=== PATIENT | female | born 1965 | race Caucasian/White ===

== ENCOUNTER 2021-04-24 19:16 | Emergency (ER) | payer BC, SELFPAY ==
[2021-04-24 19:26] VITALS: BP 175/106; PULSE 86; RESP 18; TEMP 36.8; O2SAT 97; BMI 37.2
[2021-04-24 20:15] LABS: Add Urine Microscopic? YES; Bilirubin Urine 1+ (Negative); Blood Urine 3+ (Negative); Glucose Urine UA Norm (Normal); Ketones Urine 1+ (Negative); Leukocyte Esterase Urine 1+ (Negative); Nitrate Urine Positive (Negative); Protein Urine 3+ (Negative); Urine Color Amber (Yellow); Urobilinogen Urine 1 mg/dL (Negative); pH Urine 5 (5-7)
[2021-04-24 20:17] LABS: Add Urine Culture? No; Bacteria Urine 4+ /hpf; RBC Urine TOO NUMEROUS TO CNT /hpf (0-2); Squamous Epithelial Cell Urine 40-55 /hpf (0-5); WBC Urine >100 /hpf (0-5)
--- NOTE | 2021-04-24 21:18 | W.ED.FEMALGU ---
HPI - Female Genitourinary General: Chief complaint: Urogenital-Female Stated complaint: blood in urain Time Seen by Provider: 04/24/21 21:08 History of Present Illness: Patient is a 55-year-old female who comes to the ED with UTI symptoms. Patient says yesterday she noticed a little bit of blood in her urine and she was having some pain when urinating. Today she continued to have some visible blood in urine. She denies any fever, chills, abdominal pain, nausea/vomiting. She does endorse some mild left flank/lower back pain. She describes the left flank/lower back pain as mild. She has not had any recent antibiotic use and has no allergies to any antibiotics. Associated symptoms: Deny abdominal pain, headache(s) or nausea Review of Systems Const: Denies: fever(s), chills or fatigue Eyes: Denies: change in vision or eye discomfort ENMT: Denies: throat pain, odynophagia, nasal discharge or nasal congestion Card: Denies: chest pain, palpitations, edema, swelling of feet/ankles, dyspnea on exertion or orthopnea Resp: Denies: dyspnea, productive cough or non-productive cough GI: Denies: abdominal pain, nausea, vomiting, diarrhea, constipation or hematochezia : Reports: flank pain (left), dysuria and hematuria Musc: Denies: neck pain, back pain or extremity swelling Skin/Breast: Denies: rash or new lesions Neuro: Denies: headache(s) PFS ED PFSH: Medical History No pertinent family history No pertinent past medical history Physical Exam Const: COMMON NORMALS: no acute distress and patient oriented x3 GENERAL APPEARANCE: cooperative and comfortable HENMT: COMMON NORMALS: normocephalic HEAD & SCALP: normocephalic MOUTH: Normal oral and palatal mucosa present THROAT: posterior oropharynx normal and uvula midline Neck/C-Spine: COMMON NORMALS: supple GENERAL: Yes normal visual inspection Resp: COMMON NORMALS: normal respiratory effort, No retractions, No use of accessory muscles and clear to auscultation bilaterally AUSCULTATION: clear to auscultation bilaterally Cardio: COMMON NORMALS: regular rate, regular rhythm, S1 normal heart sound present, S2 normal heart sound present, No gallops present (Cardio), No clicks present (Cardio), No murmurs present (Cardio) and Peripheral pulses 2+ throughout RATE: regular rate RHYTHM: regular rhythm HEART SOUNDS: S1 normal heart sound present and S2 normal heart sound present PERIPHERAL PULSES: Peripheral pulses 2+ throughout GI: COMMON NORMALS: Normal to inspection, nondistended, normoactive bowel sounds present, Soft to palpation, non-tender and no masses PALPATION: Yes Soft to palpation : BLADDER/KIDNEY EXAM: Yes CVA tenderness on the left Back/Pelvis: GENERAL BACK: Yes CVA tenderness Extremity: COMMON NORMALS: normal to inspection Neuro: COMMON NORMALS: patient oriented x3 GAIT: Yes Normal gait present Skin: GENERAL SKIN EXAM: dry skin Course Vital Signs: Vital signs: Vital Signs Temperature 98.0 F 04/24/21 21:49 Pulse Rate 77 04/24/21 21:49 Respiratory Rate 18 04/24/21 21:49 Blood Pressure 166/99 04/24/21 21:49 Pulse Oximetry 96 04/24/21 21:49 [facility] - Female Medical Decision Making Patient is a 55-year-old female comes to the ED with UTI symptoms. She has been having visible blood in urine and dysuria for the past 2 days. Denies fever, chills, nausea/vomiting. Vitals stable. Patient appears in no acute distress or pain. She has some mild left CVA tenderness. Rest of exam is benign. UA showed a lot of blood, nitrates, white blood cells and bacteria. Patient diagnosed with UTI and was discharged home with a prescription for ciprofloxacin. She was told to follow-up with her PCP in 5 to 7 days for reevaluation. Return to ED precautions given. Patient understood and agreed with plan. Lab Data Laboratory Results Urine Color Jessika (Yellow) 04/24/21 19:30 Urine Appearance Sl cloudy (CLEAR) A 04/24/21 19:30 Urine pH 5 (5-7) 04/24/21 19:30 Ur Specific [place] 1.030 (1.005-1.030) 04/24/21 19:30 Urine Protein 3+ (Negative) H 04/24/21 19:30 Urine Glucose (UA) Norm (Normal) 04/24/21 19:30 Urine Ketones 1+ (Negative) H 04/24/21 19:30 Urine Blood 3+ (Negative) H 04/24/21 19:30 Urine Nitrate Positive (Negative) H 04/24/21 19:30 Urine Bilirubin 1+ (Negative) H 04/24/21 19:30 Urine Urobilinogen 1 mg/dL (Negative) H 04/24/21 19:30 Ur Leukocyte Esterase 1+ (Negative) H 04/24/21 19:30 Urine RBC Too numerous to cnt /hpf (0-2) H 04/24/21 19:30 Urine WBC >100 /hpf (0-5) H 04/24/21 19:30 Ur Squamous Epith Cells 40-55 /hpf (0-5) H 04/24/21 19:30 Amorphous Sediment Not Reportable 04/24/21 19:30 Urine Bacteria 4+ /hpf (NONE) H 04/24/21 19:30 Discharge Plan Discharge Patient Disposition: Home Clinical Impression: Urinary tract infection Qualifiers: Urinary tract infection type: acute cystitis Hematuria presence: with hematuria Qualified Code(s): N30.01 - Acute cystitis with hematuria Condition: Stable Prescriptions: New ciprofloxacin HCl 500 mg tablet 500 mg PO BID 7 Days Qty: 14 0RF Discharge Orders: Discharge ED (Routine); Ordered 04/24/21 Ordered By: Vel Reyes Discharge Diet: Regular Discharge Activity: Resume usual activity Patient Instructions: Urinary Tract Infection in Women (DC) Activity Restrictions/Additional Instructions: Follow-up with medical provider as directed in the next 5 to 7 days reevaluation.Take medications as prescribed. Return to the ER or your medical provider if condition worsens. Please read and understand discharge instructions. Thank you for choosing [facility] for your healthcare needs today. Please realize this is an emergency room and that we are providing you with a medical screening exam and this may not be complete and all inclusive of all the testing and or work up that you may need to determine your ailment or severity of your illness. It is very important that you follow up as instructed or that you return to the Emergency Department should you have concerns or if your condition changes or worsens in any way. Stand Alone Forms: Work/School Release Coding Level of Care Code ED Gm for Juana Fwivonne Exam Comprehensive
[2021-04-24] MEDS: ciprofloxacin 500 mg Tablet PO (21:47)
[2021-04-24 21:49] VITALS: BP 166/99; PULSE 77; RESP 18; TEMP 36.7; O2SAT 96
== END 2021-04-24 21:56 | disposition home or self-care (01) ==
PROVIDERS: Emergency Provider Physician Assistant
DX: N30.01 Acute cystitis with hematuria (principal)
CPT/HCPCS: 81001; 99283

== ENCOUNTER 2022-02-20 01:00 | Outpatient (CLI) | payer BC, SELFPAY ==
[2022-02-20 13:26] LABS: Troponin T (5th) Once 14 ng/L (0-10)
== END 2022-02-20 23:00 | disposition home or self-care (01) ==
LOC: LAB 04-09 14:34
PROVIDERS: PCP Family Medicine; Visit Provider Family Medicine
DX: Z01.89 Encounter for other specified special examinations (principal)
CPT/HCPCS: 84484

== ENCOUNTER 2022-02-20 15:11 | Emergency (ER) | payer BC, SELFPAY ==
--- NOTE | 2022-02-20 15:21 | ECG_ITS ---
[facility] Test Date: 2022-02-20 Pat Name: Radha Oneill Department: Room: Gender: Female Manager Of International: : 1965 Requested By: Andrew Christianson Order Number: [id number] Caren MD: Laura Garcia M.D. Measurements Intervals [place] Rate: 64 P: 62 VA: 179 QRS: -46 QRSD: 132 T: 83 QT: 413 QTc: 428 Interpretive Statements SINUS RHYTHM LEFT AXIS DEVIATION [QRS AXIS < -30] LEFT BUNDLE BRANCH BLOCK [120+ ms QRS DURATION, 80+ ms Q/S IN V1/V2, 85+ ms R IN I/aVL/V5/V6] No previous ECG available for comparison Electronically Signed On 02-20-2022 17:52:27 MANAGER OF MAINTENANCE by Laura Garcia M.D. [email or web address]/store/[id number] f
[2022-02-20 15:46] VITALS: BP 187/98; PULSE 65; RESP 16; TEMP 36.8; O2SAT 95
[2022-02-20 15:54] LABS: Basophils # 0.1 10^3/uL (0.0-0.1); Basophils % 0.5 %; Eosinophils # 0.2 10^3/uL (0.0-0.8); Eosinophils % 1.7 %; Hemoglobin 13.6 g/dL (11.5-15.3); Lymphocytes # 1.3 10^3/uL (0.8-4.8); Lymphocytes % 12.3 %; Mean Corpuscular HGB Conc 31.6 g/dL (30.0-36.0); Mean Corpuscular Hemoglobin 27.8 pg (28.0-34.0); Mean Corpuscular Volume 87.9 fl (81-99); Monocytes # 0.7 10^3/uL (0.2-0.9); Monocytes % 6.5 %; Neutrophils # 8.06 10^3/uL (1.8-7.7); Neutrophils % 78.8 %; Nucleated Red Blood Cells % 0 %; Platelet Count 296 10^3/cmm (130-400); Red Blood Count 4.89 10^6/uL (4.1-5.3); Red Cell Distribution Width 13.2 % (12.1-15.1); White Blood Count 10.2 10^3/uL (4.0-10.0)
[2022-02-20 16:23] LABS: Troponin(5th) Baseline 17 ng/L (0-10)
[2022-02-20 16:30] LABS: Alanine Aminotransferase 18 U/L (0-33); Albumin Level 3.9 g/dL (3.5-5.2); Alkaline Phosphatase 81 U/L (35-105); Anion Gap 13.2 (5-19); Aspartate Amino Transferase 21 U/L (0-32); Blood Urea Nitrogen 16 mg/dL (6-20); Calcium 9.7 mg/dL (8.5-10.5); Carbon Dioxide 31 mmol/L (22-29); Chloride 100 mmol/L (98-107); Globulin 3.7 g/dL (1.3-4.6); Glomerular Filtration Rate 65.2 mL/min (90-130); Glucose 88 mg/dL (65-115); NT Pro B Type Natriuretic Pept 1277 pg/mL (0-125); Osmolality Calculated 291 mOsm/kg (285-295); Potassium 4.2 mmol/L (3.5-5.1); Sodium 140 mmol/L (136-145); Total Bilirubin 0.2 mg/dL (0.15-1.2); Total Protein 7.6 g/dL (6.6-8.7)
--- NOTE | 2022-02-20 17:12 | XRR_ITS ---
PROCEDURE INFORMATION: Exam: XR Chest Exam date and time: 02/20/2022 6:40 PM Age: 56 years old Clinical indication: Pain; Left-sided; Additional info: Chest pain TECHNIQUE: Imaging protocol: Radiologic exam of the chest. Views: 1 view. COMPARISON: No relevant prior studies available. FINDINGS: Lungs: Unremarkable. No consolidation. Pleural spaces: Unremarkable. No pleural effusion. No pneumothorax. Heart/Mediastinum: Cardiomegaly. Bones/joints: Unremarkable. XR/XR chest 1V portable [id number] IMPRESSION: Cardiomegaly, negative for infiltrate
--- NOTE | 2022-02-20 17:21 | ECG_ITS ---
[facility] Test Date: 2022-02-20 Pat Name: Radha Oneill Department: Room: Gender: Female Handle Sewer: : 1965 Requested By: Andrew Christianson Order Number: [id number] Caren MD: Laura Garcia M.D. Measurements Intervals [place] Rate: 64 P: 67 NE: 179 QRS: -45 QRSD: 138 T: 76 QT: 433 QTc: 449 Interpretive Statements SINUS RHYTHM WITH OCCASIONAL VENTRICULAR PREMATURE COMPLEXES LEFT AXIS DEVIATION [QRS AXIS < -30] LEFT BUNDLE BRANCH BLOCK [120+ ms QRS DURATION, 80+ ms Q/S IN V1/V2, 85+ ms R IN I/aVL/V5/V6] Compared to ECG 02/20/2022 15:51:09 Ventricular premature complex(es) now present Electronically Signed On 02-21-2022 0:14:26 SHADE MAKER by Laura Garcia M.D. [email or web address]/store/[id number]
--- NOTE | 2022-02-20 17:26 | W.ED.CHESTPA ---
Documented by User: Robles Finley DO 02/23/22 07:12 HPI - Chest Pain General: Chief Complaint: Chest Pain Stated Complaint: abnormal labs Time Seen by Provider: 02/20/22 17:12 Source: patient Mode of arrival: ambulatory Limitations: no limitations History of Present Illness: 56-year-old female presents emergency room history of hypertension. She complaining some chest discomfort as well she has had this intermittently. She has had over the last couple of days. She has a known history of hypertension no known history of coronary artery disease. Patient does not smoke. No previous stroke she denies being diabetic. She was started on metoprolol earlier today and then directed her because the elevated blood pressure. Patient reports that she has previously had a heart attack when asked for details she sounds if she was given a dose of narcotics during the course of a vaginal delivery and then she does not recall what happened she said she woke up 3 days later she says she was told she had a heart attack but she never had an angiogram or stenting or any kind of further evaluation. MD complaint: chest pain Onset (ago): hour(s) Timing of current episode: episodic Prior episodes: Yes Onset: during rest Pain location: substernal Pain radiation: none Severity: mild Quality: tightness, aching and heaviness Relieving factors: nothing Exacerbating factors: nothing Associated symptoms: Deny abdominal pain, diaphoresis, dyspnea, fever(s), leg edema, nausea, palpitations, sense of impending doom, syncope or vomiting Treatment prior to arrival: none Review of Systems Const: Denies: fever(s), chills, fatigue, malaise or diaphoresis ENMT: Denies: throat pain, ear or mastoid pain, nasal discharge or nasal congestion Card: Reports: chest pain, edema and swelling of feet/ankles; Denies: palpitations, irregular heart rhythm or syncope Resp: Denies: dyspnea, productive cough, non-productive cough or wheezing GI: Denies: abdominal pain, nausea or vomiting : Denies: flank pain, difficulty voiding, dysuria, urinary frequency or urinary urgency Skin/Breast: Denies: rash or pruritus PFSH ED PFSH: Medical History No pertinent family history No pertinent past medical history Social History (Updated 02/23/22 @ 07:10 by Robles Finley DO) Smoking and tobacco status: never smoked Alcohol intake: never Physical Exam Const: COMMON NORMALS: no acute distress GENERAL APPEARANCE: cooperative and comfortable NUTRITIONAL APPEARANCE: obese ORIENTATION/CONSCIOUSNESS: Yes awake, Yes oriented to person, Yes oriented to place and Yes oriented to time HENMT: COMMON NORMALS: normocephalic, atraumatic and hearing grossly normal bilaterally HEAD & SCALP: normocephalic and atraumatic Resp: COMMON NORMALS: normal respiratory effort, No retractions, No use of accessory muscles and clear to auscultation bilaterally AUSCULTATION: clear to auscultation bilaterally Cardio: COMMON NORMALS: regular rate, regular rhythm and No murmurs present (Cardio) RATE: regular rate RHYTHM: regular rhythm GI: COMMON NORMALS: Soft to palpation and No hepatosplenomegaly present AUSCULTATION: Yes normoactive bowel sounds PALPATION: Yes Soft to palpation, No Tenderness to palpation present (GI), No Guarding due to palpation present (GI) and Yes No hepatosplenomegaly present Extremity: COMMON NORMALS: normal to inspection, capillary refill normal, no clubbing, cyanosis or edema, no calf tenderness and no pedal edema Neuro: SENSORIUM/ORIENTATION: Yes oriented to person, Yes oriented to place and Yes oriented to time Skin: COMMON NORMALS: no rashes or lesions noted GENERAL SKIN EXAM: no rashes or lesions noted Course Vital Signs: Vital signs: Vital Signs Temperature 98.2 F 02/20/22 15:46 Pulse Rate 65 02/20/22 18:24 Respiratory Rate 15 02/20/22 17:54 Blood Pressure 142/82 02/20/22 18:42 Pulse Oximetry 96 02/20/22 18:42 Oxygen Delivery Me thod 02/20/22 18:42 MDM - Chest Pain Medical Decision Making Initial EKG is negative. Patient reported that she previously had an CA related to narcotic being given to her during . But she has no known history of previous angiography or stenting she has not had bypass. Surgery been started on metoprolol we will add isosorbide mononitrate she is not having any significant pain when she first presented initial EKG does not show any acute changes she had a troponin at her doctor's office at 1:00 and a second troponin here which conveniently is almost exactly 2 hours later which is also normal. Because of volumes in the emergency room by the time I seen the patient our 2-hour troponin was about to be drawn. We will wait on that result discussed with Dr. Arndt he will assume care at change of shift and discharge home if appropriate. Patient presents here with chest pain with hypertension her troponins here are normal she had a troponin drawn earlier today that was normal as well her blood pressure is now 142/82 she is stable for discharge she is started on new meds she is to follow-up with PCP and return if worsening. Medical Records I reviewed the patient's medical records. Lab Data I reviewed the patient's lab results. 02/20/22 15:40 02/20/22 15:40 Radiology Impressions Chest X-Ray 02/20/22 17:12 IMPRESSION: Cardiomegaly, negative for infiltrate Laboratory Results WBC 10.2 10^3/uL (4.0-10.0) H 02/20/22 15:40 RBC 4.89 10^6/uL (4.1-5.3) 02/20/22 15:40 Hgb 13.6 g/dL (11.5-15.3) 02/20/22 15:40 Hct 43.0 % (37.0-47.0) 02/20/22 15:40 MCV 87.9 fl (81-99) 02/20/22 15:40 MCH 27.8 pg (28.0-34.0) L 02/20/22 15:40 MCHC 31.6 g/dL (30.0-36.0) 02/20/22 15:40 RDW 13.2 % (12.1-15.1) 02/20/22 15:40 Plt Count 296 10^3/cmm (130-400) 02/20/22 15:40 MPV 10.0 fL (7.4-10.4) 02/20/22 15:40 Neut % (Auto) 78.8 % 02/20/22 15:40 Lymph % (Auto) 12.3 % 02/20/22 15:40 [place] % (Auto) 6.5 % 02/20/22 15:40 Eos % (Auto) 1.7 % 02/20/22 15:40 Baso % (Auto) 0.5 % 02/20/22 15:40 Neut # (Auto) 8.06 10^3/uL (1.8-7.7) H 02/20/22 15:40 Lymph # (Auto) 1.3 10^3/uL (0.8-4.8) 02/20/22 15:40 [place] # (Auto) 0.7 10^3/uL (0.2-0.9) 02/20/22 15:40 Eos # (Auto) 0.2 10^3/uL (0.0-0.8) 02/20/22 15:40 Baso # (Auto) 0.1 10^3/uL (0.0-0.1) 02/20/22 15:40 Nucleated RBC % (auto) 0 % 02/20/22 15:40 Nucleated RBCs # 0.0 /100WBC 02/20/22 15:40 Sodium 140 mmol/L (136-145) 02/20/22 15:40 Potassium 4.2 mmol/L (3.5-5.1) 02/20/22 15:40 Chloride 100 mmol/L (98-107) 02/20/22 15:40 Carbon Dioxide 31 mmol/L (22-29) H 02/20/22 15:40 Anion Gap 13.2 (5-19) 02/20/22 15:40 BUN 16 mg/dL (6-20) 02/20/22 15:40 Creatinine 0.9 mg/dL (0.5-0.9) 02/20/22 15:40 GFR Calculation 65.2 mL/min (90-130) L 02/20/22 15:40 Glucose 88 mg/dL (65-115) 02/20/22 15:40 Calculated Osmolality 291 mOsm/kg (285-295) 02/20/22 15:40 Calcium 9.7 mg/dL (8.5-10.5) 02/20/22 15:40 Total Bilirubin 0.2 mg/dL (0.15-1.2) 02/20/22 15:40 AST 21 U/L (0-32) 02/20/22 15:40 ALT 18 U/L (0-33) 02/20/22 15:40 Alkaline Phosphatase 81 U/L (35-105) 02/20/22 15:40 Troponin T Baseline 17 ng/L (0-10) H 11/28/22 15:40 Troponin T 120 Minute 18.77 ng/L (0-10) H 02/20/22 17:36 Delta Troponin T 1.77 ABS# (0-10) 02/20/22 17:36 NT-Pro-B Natriuret Pep 1277 pg/mL (0-125) H 02/20/22 15:40 Total Protein 7.6 g/dL (6.6-8.7) 02/20/22 15:40 Albumin 3.9 g/dL (3.5-5.2) 02/20/22 15:40 Globulin 3.7 g/dL (1.3-4.6) 02/20/22 15:40 Hep Bs Antigen Non-reactive (Nonreactive) 02/20/22 15:40 Hepatitis C Antibody Non-reactive (Nonreactive) 02/20/22 15:40 HIV 1&2 Ab & HIV 1 Ag Non-reactive (Non-Reactiv) 02/20/22 15:40 HIV 1&2 Antibody Non-reactive (Non-Reactiv) 02/20/22 15:40 Discharge Plan Discharge Patient Disposition: Home Clinical Impression: Atypical chest pain Condition: Stable Prescriptions: New isosorbide mononitrate 30 mg tablet extended release 24 hr 30 mg PO DAILY Qty: 30 0RF aspirin 81 mg tablet,delayed release (DR/EC) 81 mg PO DAILY Qty: 30 0RF No Action trazodone 100 mg tablet 100 mg PO DAILY baclofen 10 mg tablet 10 mg PO BID PRN (Reason: Muscle Spasm) metoprolol tartrate 50 mg tablet 50 - 100 mg PO BID albuterol sulfate 90 mcg/actuation HFA aerosol inhaler 2 puff INHALATION Q4H PRN (Reason: Shortness Of Breath) Advil 200 mg Tablet 800 mg PO Q6H PRN (Reason: Pain) Discharge Orders: Discharge ED (Routine); Ordered 02/20/22 Ordered By: Robles Finley Referrals: Luisa Avina MD [Primary Care Provider] - Discharge Diet: Usual diet Discharge Activity: Limit activity as instructed Activity Restrictions/Additional Instructions: You were seen for an episode of chest pain. Your blood pressure was also significantly elevated. Management make arrangements for you to have an outpatient stress test. Coding Level of Care Code ED Light Oil Operator for Chg Fwd Documented by User: Antonio Arndt MD 02/20/22 18:43 HPI - Chest Pain General: Chief Complaint: Chest Pain Stated Complaint: abnormal labs Time Seen by Provider: 02/20/22 17:12 History of Present Illness: . PFSH ED PFSH: Medical History No pertinent family history No pertinent past medical history Social History (Updated 02/23/22 @ 07:10 by Robles Finley DO) Smoking and tobacco status: never smoked Alcohol intake: never Course Vital Signs: Vital signs: Vital Signs Temperature 98.2 F 02/20/22 15:46 Pulse Rate 65 02/20/22 18:24 Respiratory Rate 15 02/20/22 17:54 Blood Pressure 142/82 02/20/22 18:42 Pulse Oximetry 96 02/20/22 18:42 Oxygen Delivery Me thod 02/20/22 18:42 MDM - Chest Pain Medical Decision Making Patient presents here with chest pain with hypertension her troponins here are normal she had a troponin drawn earlier today that was normal as well her blood pressure is now 142/82 she is stable for discharge she is started on new meds she is to follow-up with PCP and return if worsening. Lab Data 02/20/22 15:40 02/20/22 15:40 Radiology Impressions Chest X-Ray 02/20/22 17:12 IMPRESSION: Cardiomegaly, negative for infiltrate Laboratory Results WBC 10.2 10^3/uL (4.0-10.0) H 02/20/22 15:40 RBC 4.89 10^6/uL (4.1-5.3) 02/20/22 15:40 Hgb 13.6 g/dL (11.5-15.3) 02/20/22 15:40 Hct 43.0 % (37.0-47.0) 02/20/22 15:40 MCV 87.9 fl (81-99) 02/20/22 15:40 MCH 27.8 pg (28.0-34.0) L 02/20/22 15:40 MCHC 31.6 g/dL (30.0-36.0) 02/20/22 15:40 RDW 13.2 % (12.1-15.1) 02/20/22 15:40 Plt Count 296 10^3/cmm (130-400) 02/20/22 15:40 MPV 10.0 fL (7.4-10.4) 02/20/22 15:40 Neut % (Auto) 78.8 % 02/20/22 15:40 Lymph % (Auto) 12.3 % 02/20/22 15:40 [place] % (Auto) 6.5 % 02/20/22 15:40 Eos % (Auto) 1.7 % 02/20/22 15:40 Baso % (Auto) 0.5 % 02/20/22 15:40 Neut # (Auto) 8.06 10^3/uL (1.8-7.7) H 02/20/22 15:40 Lymph # (Auto) 1.3 10^3/uL (0.8-4.8) 02/20/22 15:40 [place] # (Auto) 0.7 10^3/uL (0.2-0.9) 02/20/22 15:40 Eos # (Auto) 0.2 10^3/uL (0.0-0.8) 02/20/22 15:40 Baso # (Auto) 0.1 10^3/uL (0.0-0.1) 02/20/22 15:40 Nucleated RBC % (auto) 0 % 02/20/22 15:40 Nucleated RBCs # 0.0 /100WBC 02/20/22 15:40 Sodium 140 mmol/L (136-145) 02/20/22 15:40 Potassium 4.2 mmol/L (3.5-5.1) 02/20/22 15:40 Chloride 100 mmol/L (98-107) 02/20/22 15:40 Carbon Dioxide 31 mmol/L (22-29) H 02/20/22 15:40 Anion Gap 13.2 (5-19) 02/20/22 15:40 BUN 16 mg/dL (6-20) 02/20/22 15:40 Creatinine 0.9 mg/dL (0.5-0.9) 02/20/22 15:40 GFR Calculation 65.2 mL/min (90-130) L 02/20/22 15:40 Glucose 88 mg/dL (65-115) 02/20/22 15:40 Calculated Osmolality 291 mOsm/kg (285-295) 02/20/22 15:40 Calcium 9.7 mg/dL (8.5-10.5) 02/20/22 15:40 Total Bilirubin 0.2 mg/dL (0.15-1.2) 02/20/22 15:40 AST 21 U/L (0-32) 02/20/22 15:40 ALT 18 U/L (0-33) 02/20/22 15:40 Alkaline Phosphatase 81 U/L (35-105) 02/20/22 15:40 Troponin T Baseline 17 ng/L (0-10) H 02/20/22 15:40 Troponin T 120 Minute 18.77 ng/L (0-10) H 02/20/22 17:36 Delta Troponin T 1.77 ABS# (0-10) 02/20/22 17:36 NT-Pro-B Natriuret Pep 1277 pg/mL (0-125) H 02/20/22 15:40 Total Protein 7.6 g/dL (6.6-8.7) 02/20/22 15:40 Albumin 3.9 g/dL (3.5-5.2) 02/20/22 15:40 Globulin 3.7 g/dL (1.3-4.6) 02/20/22 15:40 Hep Bs Antigen Non-reactive (Nonreactive) 02/20/22 15:40 Hepatitis C Antibody Non-reactive (Nonreactive) 02/20/22 15:40 HIV 1&2 Ab & HIV 1 Ag Non-reactive (Non-Reactiv) 02/20/22 15:40 HIV 1&2 Antibody Non-reactive (Non-Reactiv) 02/20/22 15:40 Discharge Plan Discharge Patient Disposition: Home Clinical Impression: Atypical chest pain Condition: Stable Prescriptions: New isosorbide mononitrate 30 mg tablet extended release 24 hr 30 mg PO DAILY Qty: 30 0RF aspirin 81 mg tablet,delayed release (DR/EC) 81 mg PO DAILY Qty: 30 0RF No Action trazodone 100 mg tablet 100 mg PO DAILY baclofen 10 mg tablet 10 mg PO BID PRN (Reason: Muscle Spasm) metoprolol tartrate 50 mg tablet 50 - 100 mg PO BID albuterol sulfate 90 mcg/actuation HFA aerosol inhaler 2 puff INHALATION Q4H PRN (Reason: Shortness Of Breath) Advil 200 mg Tablet 800 mg PO Q6H PRN (Reason: Pain) Discharge Orders: Discharge ED (Routine); Ordered 02/20/22 Ordered By: Robles Finley Referrals: Luisa Avina MD [Primary Care Provider] - Discharge Diet: Usual diet Discharge Activity: Limit activity as instructed Activity Restrictions/Additional Instructions: You were seen for an episode of chest pain. Your blood pressure was also significantly elevated. Management make arrangements for you to have an outpatient stress test. Coding Level of Care Code ED Light Oil Operator for Juana Shah
[2022-02-20 17:54] VITALS: BP 216/144; RESP 15; O2SAT 97
[2022-02-20 18:07] LABS: Troponin 5 2HR 18.77 ng/L (0-10)
[2022-02-20 18:09] LABS: Troponin 5 2HR Delta 1.77 ABS# (0-10)
[2022-02-20 18:17] LABS: HIV 1 & 2 Antibody Non-Reactive (Non-Reactiv); HIV 1 & 2 Antigen Non-Reactive (Non-Reactiv)
[2022-02-20] MEDS: hyDRALAzine 20 mg/mL INJ 1 mL IVP (18:20)
[2022-02-20] MEDS: isosorbide dinitrate 20 mg Tablet 40 MG PO (18:21)
[2022-02-20 18:24] VITALS: BP 216/114; PULSE 65; O2SAT 95
[2022-02-20 18:42] VITALS: BP 142/82; O2SAT 96
--- NOTE | 2022-02-20 18:49 | PC.NURSE ---
Patient was unhappy when this nurse discharged her. She stated that she was going to a different hospital with real doctors.
[2022-02-20 21:47] LABS: Hepatitis B Surface Antigen Non-Reactive (Nonreactive); Hepatitis C Virus Antibody Non-Reactive (Nonreactive)
--- NOTE | 2022-02-21 12:55 | DCPLANNER ---
gravity manager had message to schedule an outpatient stress test for patient. gravity manager faxed signed order to centralized scheduling, who will call patient with appointment information.
--- NOTE | 2022-02-22 06:47 | DCPLANNER ---
Addendum entered by Rhiannon Rodriguez 06/12/22 07:54: Patient had an outpatient stress test scheduled - patient did attend appointment Original Note: slots manager had message to schedule an outpatient stress test for patient. slots manager faxed patients information to centralized scheduling, who will call patient with appointment information. slots manager also sent notification to patients primary care physician that a stress test was ordered from the ER provider.
== END 2022-02-20 18:45 | disposition home or self-care (01) ==
PROVIDERS: Emergency Medicine; Family Medicine; Emergency Provider Emergency Medicine; PCP Family Medicine
DX: R07.9 Chest pain, unspecified (principal)
CPT/HCPCS: 36415; 71045; 80053; 83880; 84484; 85025; 86803; 87340; 87806; 93005; 96365; 99285; J0360

== ENCOUNTER 2022-05-11 06:34 | Outpatient (CLI) | payer OTHER, SELFPAY ==
[2022-05-11 07:00] VITALS: BMI 36.6
--- NOTE | 2022-05-11 07:00 | ECG_ITS ---
[facility] Test Date: 2022-05-11 Pat Name: Radha Oneill Department: Room: Gender: Female Billet Examiner: Abida Jean : 1965 Requested By: Antonio Arndt Order Number: [id number] Caren MD: Roberta Dumont M.D. Interpretive Statements NAME OF STUDY: LEXISCAN SESTAMIBI STRESS TEST INDICATION: Atypical Chest Pain PROCEDURE: At the baseline, the blood pressure was 169/99 mm Hg with a heart rate of 71 bpm. The electrocardiogram showed sinus rhythm, normal axis. LBBB. ??? The Lexiscan was infused over a period of 20 seconds. A total of 0.4 milligrams of Lexiscan was infused. The stress phase was continued for a total of 5 minutes. Heart rate at the end of the stress phase was 92 bpm with a blood pressure of 128/96 mm Hg. The EKG at the peak infusion revealed no significant changes. ??? Sestamibi was injected 20 seconds after the Lexiscan infusion. ??? Blood pressure at the end of the recovery phase was 127/86 mm Hg with a heart rate of 84 beats per minute. ??? CONCLUSION: 1. Non diagnostic EKG changes with the LexiScan infusion due to baseline LBBB. 2. No LexiScan induced chest pain or cardiac arrhythmia. 3. Baseline hypertension with normal blood pressure and heart rate response. 4. Sestamibi/sestamibi perfusion scan pending; see separate report. Electronically Signed On 05-13-2022 12:40:54 HEAVY CLEANER by Roberta Dumont M.D. [id number]
--- NOTE | 2022-05-11 07:01 | NMCV_ITS ---
NM jacquelin perf SPECT r/s* [id number] Radha Oneill Age: 56 Gender: F : 1965 Exam Date: 05/11/2022 07:01 Ordering Phys: Antonio Arndt MD Technologist: SANA Porter Exam Location: [facility] Indications: CHEST PAIN STRESS TEST Please see separate stress test report in [facility] for full findings IMAGE PROTOCOL Rest/Stress 1 Lexiscan Day Radiopharmaceutical Dose (mCi) Administration Site Administered by Rest: Tc-99m 10.8 IV SANA Rangel Sestamibi Stress:Tc-99m 32.6 IV SANA Rangel Sestamibi Rest: 11-May-2022 60 Discovery 630 Stress: 11-May-2022 30 Discovery 630 0.4mg Lexiscan. Images obtained in supine and prone position. SPECT RESULTS Technical Quality: Excellent Raw Data Analysis: Normal Image Corrections: No attenuation or motion correction applied Summed Stress Score: 13 Summed Rest Score: 6 Summed Difference Score: 7 PERFUSION FINDINGS There is a medium sized area of fixed perfusion defect noted in the apical septal and apical wall. This is consistent with prior infarct noted in the LAD territory. There is a partially reversible, large sized area of perfusion defect noted in the apical inferior and inferior mackay. This is consistent with large area of prior infarct in the RCA territory with significant chastity-infarct ischemia. FUNCTIONAL RESULTS (calculated via Gated SPECT) Stress Image LV EF (%): 42 Stress EDV (mL):153 TID: 1.09 Stress ESV (mL):88 FUNCTIONAL FINDINGS: LV systolic function is moderately reduced with EF of 42%. Moderate global hypokinesis is seen IMPRESSIONS 1. Abnormal myocardial perfusion imaging with medium sized prior infarct seen in the LAD territory. 2. Large sized prior infarct noted in the RCA territory with significant chastity- infarct ischemia 3. LV systolic function is moderately reduced with EF of 42% Santana Jiang MD (Electronically Signed) Final Date: 16 May 2022 11:22 S
[2022-05-11] MEDS: regadenoson 0.4 Mg/5 ml Syringe IVP (08:30)
[2022-05-11 08:45] VITALS: BP 127/86; PULSE 87
== END 2022-05-11 06:35 | disposition home or self-care (01) ==
PROVIDERS: PCP Family Medicine; Visit Provider Emergency Medicine
DX: I20.8 Other forms of angina pectoris (principal); I10 Essential (primary) hypertension
CPT/HCPCS: 36415; 78452; 93017; 96374; A9500; J2785

== ENCOUNTER 2022-08-31 07:47 | Outpatient (CLI) | payer OTHER, SELFPAY ==
--- NOTE | 2022-08-31 08:00 | USCV_ITS ---
Radha Oneill Age: 57 Gender: F : 1965 Exam Date: 08/31/2022 08:07 Ordering Phys: Laura Garcia MD ([email or web address]) Technologist: Shani Baxter [place] [facility] [place]: HTN, CP BP: 123 / 74 HR: 58 Rhythm: PVCs Technical Quality: Adequate MEASUREMENTS (Male / Female) Normal Values 2D ECHO LV Diastolic Diameter PLAX 4.8 cm 4.2 - 5.9 / 3.9 - 5.3 cm LV Systolic Diameter PLAX 3.0 cm IVS Diastolic Thickness 1.1 cm 0.6 - 1.0 / 0.6 - 0.9 cm IVS Systolic Thickness 1.9 cm LVPW Diastolic Thickness 1.1 cm 0.6 - 1.0 / 0.6 - 0.9 cm LVPW Systolic Thickness 1.9 cm LVOT Diameter 2.0 cm LV Ejection Fraction 2D Teich 67.7 % LV Ejection Fraction MOD 2C 64.2 % LV Ejection Fraction 2C AL 63.2 % LA Diameter 2.6 cm LA Width 3.0 cm LA Height 4.0 cm RA Width 2.4 cm RA Height 3.5 cm Aorta at Sinotubular Diameter 2.4 cm IVC Diameter 0.9 cm M-MODE Aortic Annulus Diameter 2.5 cm LA Ao Ratio MM 1.0 MV E Point Septal Separation 1.5 cm DOPPLER AV Peak Velocity 140.0 cm/s LVOT Peak Velocity 121.0 cm/s AV Area Cont Eq vti 3.0 cm squared AV Area Cont Eq pk 2.7 cm squared MV Peak Velocity 137.0 cm/s MV Area PHT 5.0 cm squared Mitral E to A Ratio 1.1 MV E' Velocity 60.5 cm/s Mitral E to MV E' Ratio 15.9 Mitral E to LV E' Lateral Ratio 13.4 Mitral E to LV E' Septal Ratio 19.5 TR Peak Velocity 223.7 cm/s TR Peak Gradient 20.0 mmHg Right Atrial Pressure 5.0 mmHg Pulmonary Artery Systolic Pressu 25.0 mmHg PV Peak Velocity 124.0 cm/s FINDINGS Left Ventricle Technically limited quality echocardiogram because of poor ultrasonic windows. Grossly LV systolic function is borderline normal. Regional wall motion abnormalities cannot be assessed accurately because of poor visualization of cardiac structures Right Ventricle Normal in size and function Right Atrium Normal in size Left Atrium Normal in size Mitral Valve Structurally normal mitral valve. Aortic Valve Structurally normal aortic valve. No significant stenosis. Trace aortic regurgitation. Tricuspid Valve Mild tricuspid regurgitation. Insufficient TR jet to calculate RVSP Pulmonic Valve Not well-visualized. Trace pulmonic regurgitation. Pericardium Normal Aorta Normal in size IVC Appears to be normal CONCLUSIONS Technically limited quality echocardiogram because of poor ultrasonic windows. Grossly LV systolic function is borderline normal. Regional wall motion abnormalities cannot be assessed accurately because of poor visualization of cardiac structures. For accurate assessment of LVEF, order limited echocardiogram with contrast. Trace aortic regurgitation Mild tricuspid regurgitation Trace pulmonic regurgitation. No comparison studies are available Santana Jiang MD (Electronically Signed) Final Date: 02 September 2022 16:23 S
== END 2022-08-31 07:48 | disposition home or self-care (01) ==
PROVIDERS: PCP Family Medicine; Visit Provider Internal Medicine Cardiovascular Disease
DX: R07.9 Chest pain, unspecified (principal); I08.2 Rheumatic disorders of both aortic and tricuspid valves
CPT/HCPCS: 93306

== ENCOUNTER → 2024-03-22 16:55 | Outpatient (BNVA) | payer OTHER, SELFPAY | PROVIDERS: PCP Family Medicine | DX: R39.9 Unspecified symptoms and signs involving the genitourinary system (principal) | CPT/HCPCS: 81000; 87086 ==

== ENCOUNTER 2025-03-03 16:06 | Emergency (ER) | payer OTHER, SELFPAY ==
[2025-03-03 16:11] VITALS: BP 182/91; PULSE 74; RESP 20; TEMP 36.8; O2SAT 90
--- NOTE | 2025-03-03 16:16 | ECG_ITS ---
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 Measurements Intervals [place] Rate: 69 P: 70 WY: 175 QRS: -44 QRSD: 138 T: 85 QT: 409 QTc: 440 Interpretive Statements SINUS RHYTHM POSSIBLE LEFT ATRIAL ENLARGEMENT [-0.1mV P-WAVE IN V1/V2] LEFT AXIS DEVIATION [QRS AXIS < -30] LEFT BUNDLE BRANCH BLOCK [120+ ms QRS DURATION, 80+ ms Q/S IN V1/V2, 85+ ms R IN I/aVL/V5/V6] Compared to ECG 02/20/2022 17:25:34 Ventricular premature complex(es) no longer present Electronically Signed On 03-05-2025 17:32:06 [employer] VICE PRESIDENT by Laura Garcia M.D. [email or web address]
--- NOTE | 2025-03-03 16:27 | XRR_ITS ---
PROCEDURE INFORMATION: Exam: XR Chest Exam date and time: 03/03/2025 4:35 PM Age: 59 years old Clinical indication: Shortness of breath; Additional info: Cp/sob TECHNIQUE: Imaging protocol: Radiologic exam of the chest. Views: 1 view. COMPARISON: CR XR chest 2V* [id number] 02/03/2025 2:36 PM FINDINGS: Lungs: Unremarkable. No consolidation. Pleural spaces: Unremarkable. No pleural effusion. No pneumothorax. Heart/Mediastinum: Unremarkable. No cardiomegaly. Bones/joints: Unremarkable. XR/XR chest 1V portable [id number] IMPRESSION: No acute findings.
[2025-03-03 16:50] LABS: Hematocrit 41.2 % (36-47); Hemoglobin 12.70 g/dL (11.27-16.99); Mean Corpuscular HGB Conc 30.8 g/dL (30-55); Mean Corpuscular Hemoglobin 26.6 pg (27-33); Mean Corpuscular Volume 86.4 fl (85-98); Nucleated Red Blood Cells % 0 %; Platelet Count 255 10^3/cmm (157-399); Red Blood Count 4.77 10^6/uL (3.85-5.65); White Blood Count 7.17 10^3/uL (3.29-11.43)
[2025-03-03 16:52] VITALS: BP 155/90; PULSE 71; RESP 17; O2SAT 96
--- NOTE | 2025-03-03 16:54 | ED_ITS ---
Documented by User: ESTRELLA Zendejas 03/03/25 19:18 HPI - Chest Pain 2 General: Chief Complaint: Chest Pain Stated Complaint: CP SOB O2 keeps Dropping Time Seen by Provider: 03/03/25 16:12 Source: patient Mode of arrival: ambulatory Limitations: no limitations History of Present Illness: Patient is a 59-year-old female with no pertinent past medical history reports the emergency department referred from primary care's office for chest pain and shortness of breath for the past couple of days. Also notably she was sent for reports of hypoxia, in the upper 80s and there was concern that she might be having blood clot in her lungs. Does note swelling in bilateral lower extremities, she is on amlodipine but denies any changes to dosages or recently starting this. She also takes hydrochlorothiazide. Notes that the chest pain is central radiates down into the right breast. Does note some back pain as well. Her symptoms are worse with any exertion and improved with rest. She is not on home O2. She does have history of COPD and notes that she gets bronchitis easily, this feels similar but worse. Currently in the upper 80s on room air, placed on oxygen. She does endorse coughing and wheezing, no hemoptysis. No dizziness, lightheadedness, syncope, palpitations, or other symptoms at this time. She is hypertensive 182/91, she states that at baseline she is hypertensive and she thinks her blood pressure is high because she is anxious. She quit smoking 20 years ago. MD complaint: chest pain and other (sob) Pertinent past history: other (copd) Onset (ago): day(s) Pain location: substernal Pain radiation: other (right breast) Associated symptoms: Reports dyspnea; Deny abdominal pain, fever(s), nausea, palpitations or vomiting Related Data Home Medications ?Medication ?Instructions ?Recorded ?Confirmed ibuprofen 200 mg tablet (Advil) 800 mg PO Q6H PRN Pain 02/20/22 03/22/24 famotidine 20 mg tablet 20 mg PO DAILY 08/03/2202/24 fluticasone 250 mcg-salmeterol 50 1 inh inhalation BID 08/03/22 03/22/24 mcg/dose blistr powdr for inhalation (Advair Diskus) Previous Rx's ?Medication ?Instructions ?Recorded amlodipine 5 mg tablet 5 mg PO DAILY #30 tabs 08/29 cefdinir 300 mg capsule 300 mg PO BID 10 days #20 ca ps 03/22/24 doxycycline hyclate 100 mg tablet 100 mg PO BID 10 day s #20 tabs 03/03/25 prednisone 20 mg tablet 60 mg (3 x 20 mg) PO ONCE 5 days 03/03/25 #15 tabs Allergies Allergy/AdvReac Type Severity Reaction Status Date / Time codeine Allergy ADR-Vomitin Verified 03/22/24 16:41 g hydromorphone (From Dilaudid) Allergy ALGY-Anaphy Verified 03/22/24 16:41 laxis Review of Systems 2 General: Reports: 10 or more systems reviewed and unremarkable except in HPI and below Const: Denies: fever(s), chills or fatigue Eyes: Denies: change in vision ENMT: Denies: throat pain, ear or mastoid pain or nasal discharge Card: Reports: chest pain and swelling of feet/ankles; Denies: palpitations or lightheadedness Resp: Reports: dyspnea, non-productive cough and wheezing; Denies: hemoptysis GI: Denies: abdominal pain, nausea, vomiting, diarrhea or constipation : Denies: flank pain, difficulty voiding, dysuria or urinary frequency Musc: Reports: back pain; Denies: neck pain or joint pain Skin/Breast: Denies: rash Neuro: Denies: headache(s), numbness in extremities or weakness in extremities PFSH ED 2 PFSH: Medical History No pertinent past medical history No pertinent family history Social History Smoking and tobacco/nicotine status: former use of tobacco/nicotine Alcohol intake: never Physical Exam 2 Const: COMMON NORMALS: no acute distress, patient oriented x3 and no limitations GENERAL APPEARANCE: cooperative, comfortable and well developed ORIENTATION/CONSCIOUSNESS: Yes awake, Yes oriented to person, Yes oriented to place and Yes oriented to time HENMT: COMMON NORMALS: normocephalic, atraumatic and hearing grossly normal bilaterally HEAD & SCALP: normocephalic and atraumatic Eye: COMMON NORMALS: Equal, round and reactive pupils present, EOMs intact bilaterally and conjunctivae normal CONJUNCTIVA: Yes conjunctivae normal P UPIL: Yes Equal, round and reactive pupils present Neck/C-Spine: COMMON NORMALS: full ROM, supple and no JVD Resp: COMMON NORMALS: normal respiratory effort, No retractions and No use of accessory muscles OTHER: Scattered diffuse expiratory wheezing. No significant respiratory distress. Cardio: COMMON NORMALS: no JVD, regular rate, regular rhythm, No clicks present (Cardio), No murmurs present (Cardio) and No rub (Cardio) RATE: r egular rate RHYTHM: regular rhythm GI: COMMON NORMALS: Normal to inspection, nondistended, normoactive bowel sounds present, Soft to palpation and non-tender AUSCULTATION: Yes normoactive bowel sounds PALPATION: Yes Soft to palpation RECTAL EXAM: d eferred Extremity: COMMON NORMALS: full ROM and capillary refill normal NARRATIVE EXTREMITY EXAM: 2+ pitting edema bilateral lower extremi ties Neuro: COMMON NORMALS: patient oriented x3, moves all extremities, no focal motor deficits and no sensory deficits noted SENSORIUM/ORIENTATION: Yes oriented to person, Yes oriented to place and Yes oriented to time Skin: COMMON NORMALS: no rashes or lesions noted GENERAL SKIN EXAM: no rashes or lesions noted Course 2 Vital Signs: Vital signs: Vital Signs Temperature 98.2 F 03/03/25 16:11 Pulse Rate 72 03/03/25 19:59 Respiratory Rate 16 03/03/25 19:59 Blood Pressure 133/63 03/03/25 19:59 Pulse Oximetry 90 03/03/25 19:59 Oxygen Delivery Me thod Nasal Cannula 03/03/25 19:12 Oxygen Flow Rate 2 03/03/25 19:12 MDM - Chest Pain Medical Decision Making Patient had presented from primary care's office for hypoxia and she had complaints of chest pain and shortness of breath for the past few days. History of COPD, is a current non-smoker but did quit 20 years ago. On arrival mildly hypoxic 88% on room air so placed on 2 L. After DuoNeb therapy and Solu-Medrol IV she is able to maintain above 90% on room air. Had some mild expiratory wheezing throughout on exam, but clinically did not appear in respiratory distress. Hypertensive initially as well but this was brought down over time this was likely secondary to her anxiety. Chest x-ray showing no acute findings, her D-dimer specifically negative ruling out PE, however had initially reported the chest pain radiated into the back so CT of the chest ordered to rule out any dissection. This was unremarkable other than some scattered patchy ground glass opacities, nonspecific. Her delta troponin negative, white count is not elevated, BNP is not elevated, rest of her labs are unremarkable. At this time query COPD exacerbation causing mild hypoxia that has resolved in the ED, I did offer her admission to the hospital for observation overnight but she is electing to treat outpatient. For this we will start her on doxycycline and steroids for home, is encouraged to follow-up with her primary care later this week and to return immediately if her breathing worsens, or she has any other new or concerning symptoms. The patient agrees with this plan at this time and knows to return if worse. Lab Data 03/03/25 16:40 03/03/25 16:40 Radiology Impressions Chest X-Ray 03/03/25 16:27 IMPRESSION: No acute findings. Chest CT 03/03/25 17:19 IMPRESSION: 1. Bilateral lung generalized faint scattered patchy ground-glass opacities without consolidation. Differential nonspecific; anchor in clinical context (see comment below). 2. Right lower lobe 1.0 cm diameter poorly defined nodule (axial series 7, image 43). See comments and recommendations below. 3. Moderate age-appropriate degenerative spinal changes. Other chronic/non-acute findings as described above. 4. Calcified coronary artery disease is evident. (See comment below.) COMMENTS: 1. If the patient is experiencing symptoms referable to coronary artery disease recommend management as per chest pain guidelines. If the patient is asymptomatic consider reviewing modifiable cardiovascular risk factors and managing as per guidelines for primary prevention. 2. Interpretation of nonspecific ground-glass lung opacities should be anchored in the clinical presentation and laboratory data (differential diagnostic considerations include, infection (viral/atypical), inflammatory (organizing pneumonia, hypersensitivity pneumonitis), edema/hemorrhage. Neoplastic process (e.g., adenocarcinoma spectrum) is considered less likely; although not entirely excluded). Depending on clinical context, consider short interval radiographic follow-up or follow-up CT chest (e.g., 3 months or sooner for worsening symptoms or if otherwise indicated) to ensure resolution and exclude persistent lesions. 3. With regard to lung findings, specifically right lower lobe 1.0 cm diameter lung nodule, both low risk and high risk patients, consider CT Chest at 3 months, PET/CT, or biopsy (Reference: Hemalatha). REFERENCES: Hemalatha Monroy, et al. Guidelines for Management of Incidental Pulmonary Nodules Detected on CT Images: From the Fleischner Society 2017. Radiology. 2017;284(1):228-243. Laboratory Results WBC 7.17 10^3/uL (3.29-11.43) 03/03/25 16:40 RBC 4.77 10^6/uL (3.85-5.65) 03/03/25 16:40 Hgb 12.70 g/dL (11.27-16.99) 03/03/25 16:40 Hct 41.2 % (36-47) 03/03/25 16:40 MCV 86.4 fl (85-98) 03/03/25 16:40 MCH 26.6 pg (27-33) L 03/03/25 16:40 MCHC 30.8 g/dL (30-55) 03/03/25 16:40 RDW 14.4 % (12.1-15.1) 03/03/25 16:40 Plt Count 255 10^3/cmm (157-399) 03/03/25 16:40 MPV 9.8 fL (7.4-10.4) 03/03/25 16:40 Neut % (Auto) 73.5 % 03/03/25 16:40 Lymph % (Auto) 15.5 % 03/03/25 16:40 [place] % (Auto) 7.1 % 03/03/25 16:40 Eos % (Auto) 2.9 % 03/03/25 16:40 Baso % (Auto) 0.4 % 03/03/25 16:40 Neut # (Auto) 5.27 10^3/uL (1.8-7.7) 03/03/25 16:40 Lymph # (Auto) 1.1 10^3/uL (0.8-4.8) 03/03/25 16:40 [place] # (Auto) 0.5 10^3/uL (0.2-0.9) 03/03/25 16:40 Eos # (Auto) 0.2 10^3/uL (0.0-0.8) 03/03/25 16:40 Baso # (Auto) 0.0 10^3/uL (0.0-0.1) 03/03/25 16:40 Nucleated RBC % (auto) 0 % 03/03/25 16:40 Nucleated RBCs # 0.0 /100WBC 03/03/25 16:40 D-Dimer 0.37 ug/mLFEU (0-0.59) 03/03/25 16:40 Sodium 141 mmol/L (136-145) 03/03/25 16:40 Potassium 4.2 mmol/L (3.5-5.1) 03/03/25 16:40 Chloride 97 mmol/L (98-107) L 03/03/25 16:40 Carbon Dioxide 33 mmol/L (22-29) H 03/03/25 16:40 Anion Gap 15.2 (5-19) 03/03/25 16:40 BUN 14 mg/dL (6-20) 03/03/25 16:40 Creatinine 0.7 mg/dL (0.5-0.9) 03/03/25 16:40 GFR Calculation 86.2 mL/min (90-130) L 03/03/25 16:40 Glucose 97 mg/dL (65-115) 03/03/25 16:40 Calculated Osmolality 292 mOsm/kg (285-295) 03/03/25 16:40 Calcium 9.4 mg/dL (8.5-10.5) 03/03/25 16:40 Total Bilirubin 0.3 mg/dL (0.15-1.2) 03/03/25 16:40 AST 24 U/L (0-32) 03/03/25 16:40 ALT 23 U/L (0-33) 03/03/25 16:40 Alkaline Phosphatase 83 U/L (35-105) 03/03/25 16:40 Troponin T Baseline 18 ng/L (0-10) H 03/03/25 16:40 Troponin T 60 Minute 15.13 ng/L (0-10) H 03/03/25 17:18 Delta Troponin T -2.87 ABS# (0-10) L 03/03/25 17:18 NT-Pro-B Natriuret Pep 173 pg/mL (0-125) H 03/03/25 16:40 Total Protein 7.6 g/dL (6.6-8.7) 03/03/25 16:40 Albumin 4.0 g/dL (3.5-5.2) 03/03/25 16:40 Globulin 3.6 g/dL (1.3-4.6) 03/03/25 16:40 Urine Color Yellow (Yellow) 03/03/25 17:41 Urine Appearance Clear (CLEAR) 03/03/25 17:41 Urine pH 8.0 (5-7) A 03/03/25 17:41 Ur Specific [place] 1.014 (1.005-1.030) 03/03/25 17:41 Urine Protein Negative (Negative) 03/03/25 17:41 Urine Glucose (UA) Negative (Normal) 03/03/25 17:41 Urine Ketones Negative (Negative) 03/03/25 17:41 Urine Blood Negative (Negative) 03/03/25 17:41 Urine Nitrate Negative (Negative) 03/03/25 17:41 Urine Bilirubin Negative (Negative) 03/03/25 17:41 Urine Urobilinogen 1.0 mg/dL (Negative) 03/03/25 17:41 Ur Leukocyte Esterase Trace (Negative) A 03/03/25 17:41 Urine RBC 0-2 /hpf (0-2) 03/03/25 17:41 Urine WBC 0-5 /hpf (0-5) 03/03/25 17:41 Ur Squamous Epith Cells 0-5 /hpf (0-5) 03/03/25 17:41 Amorphous Sediment Not Reportable 03/03/25 17:41 Urine Bacteria None seen /hpf (NONE) 03/03/25 17:41 Hyaline Casts 0-4 /lpf H 03/03/25 17:41 Influenza A (PCR) Negative (Negative) 03/03/25 16:40 Influenza Type B (PCR) Negative (Negative) 03/03/25 16:40 RSV (PCR) Negative (Negative) 03/03/25 16:40 SARS-CoV-2 (PCR) Negative (Negative) 03/03/25 16:40 All radiology interpretation(s) finalized by discharge Discharge Plan Discharge Patient Disposition: Home Clinical Impression: COPD exacerbation Condition: Stable Prescriptions: New prednisone 20 mg tablet 60 mg PO ONCE 5 Days Qty: 15 0RF doxycycline hyclate 100 mg tablet 100 mg PO BID 10 Days Qty: 20 0RF No Action famotidine 20 mg tablet 20 mg PO DAILY fluticasone propion-salmeterol [Advair Diskus] 250-50 mcg/dose blister with device 1 inh inhalation BID cefdinir 300 mg capsule 300 mg PO BID 10 Days Qty: 20 0RF amlodipine 5 mg tablet 5 mg PO DAILY Qty: 30 0RF Advil 200 mg Tablet 800 mg PO Q6H PRN (Reason: Pain) Discharge Orders: Discharge ED (Routine); Ordered 03/03/25 Ordered By: Anthony Kim Referrals: Genna Caldwell FNP [Primary Care Provider, Unknown] Patient Instructions: Patient Portal & David Instructions Activity Restrictions/Additional Instructions: COPD Exacerbation Discharge Instructions Diagnosis: You were treated in the emergency department for a flare-up (exacerbation) of your chronic obstructive pulmonary disease (COPD). This means your breathing symptoms got worse, likely due to inflammation and possibly infection in your lungs. What We Found: - Your oxygen level was mildly low when you arrived but improved with breathing treatments - A CT scan of your chest showed mild ground glass opacity (some haziness in the lungs) - Blood tests ruled out a blood clot in your lungs - You responded well to nebulizer treatments and steroid medication Your Medications: You will take two medications at home: 1. Doxycycline 100 mg: Take one tablet by mouth twice daily for 10 days. This antibiotic helps treat any bacterial infection that may have triggered your flare-up. 2. Prednisone 60 mg: Take one tablet (or the prescribed number of tablets to equal 60 mg) by mouth once daily for 5 days. This steroid reduces inflammation in your lungs. Short courses of 5 days are as effective as longer courses and cause fewer side effects. Continue Your Regular COPD Medications: - Keep using your regular inhalers exactly as prescribed - Use your rescue inhaler (short-acting bronchodilator) as needed for shortness of breath What to Do at Home: - Rest and gradually increase your activity as you feel better - Drink plenty of fluids unless your doctor has told you to limit fluids - Avoid smoking and secondhand smoke - Avoid air pollution, strong fumes, and other lung irritants - Practice good hand hygiene to prevent infections When to Seek Emergency Care: Return to the emergency department or call 911 if you experience: - Worsening shortness of breath that does not improve with your rescue inhaler - Shortness of breath at rest - Chest pain - Confusion or difficulty staying awake - Blue or ricketts lips or fingernails - Fever over 100.4?F (38?C) - Coughing up blood - Swelling in your legs or ankles that is new or getting worse Follow-Up Care: - Schedule an appointment with your primary care provider within 1-2 weeks - Discuss pulmonary rehabilitation with your doctor at your follow-up visit, as this can improve your breathing, exercise ability, and quality of life - Make sure your doctor reviews your inhaler technique to ensure you are using your medications correctly - Ask about getting vaccinated against flu and pneumonia if you haven't already Important Reminders: - Finish all 10 days of the antibiotic even if you feel better - Do not stop the prednisone early unless instructed by your doctor - COPD exacerbations can happen again, so it's important to take your daily medications as prescribed and avoid triggers If you have any questions or concerns about your treatment, contact your primary care provider. Print Language: Iraqi Coding Level of Care Code ED [employer] [facility] [place] [place] Heart Score HEART Score Components History: Slightly Suspicous EKG: Non-specific Changes Age: 45-64 yrs Risk Factors: 1 or 2 Risk Factors Troponin: Baseline Trop 16-45 ng/L HEART Score RESULT HEART Score: 4 Documented by User: Robles Finley DO 03/04/25 17:33 HPI - Chest Pain 2 General: Chief Complaint: Chest Pain Stated Complaint: CP SOB O2 keeps Dropping Time Seen by Provider: 03/03/25 16:12 Related Data Home Medications ?Medication ?Instructions ?Recorded ?Confirmed ibuprofen 200 mg tablet (Advil) 800 mg PO Q6H PRN Pain 02/20/22 03/22/24 famotidine 20 mg tablet 20 mg PO DAILY 08/03/2202/24 fluticasone 250 mcg-salmeterol 50 1 inh inhalation BID 08/03/22 03/22/24 mcg/dose blistr powdr for inhalation (Advair Diskus) Previous Rx's ?Medication ?Instructions ?Recorded amlodipine 5 mg tablet 5 mg PO DAILY #30 tabs 08/29 cefdinir 300 mg capsule 300 mg PO BID 10 days #20 ca ps 03/22/24 doxycycline hyclate 100 mg tablet 100 mg PO BID 10 day s #20 tabs 03/03/25 prednisone 20 mg tablet 60 mg (3 x 20 mg) PO ONCE 5 days 03/03/25 #15 tabs Allergies Allergy/AdvReac Type Severity Reaction Status Date / Time codeine Allergy ADR-Vomitin Verified 03/22/24 16:41 g hydromorphone (From Dilaudid) Allergy ALGY-Anaphy Verified 03/22/24 16:41 laxis PFSH ED 2 PFSH: Medical History No pertinent past medical history No pertinent family history Social History Smoking and tobacco/nicotine status: former use of tobacco/nicotine Alcohol intake: never Course 2 Vital Signs: Vital signs: Vital Signs Temperature 98.2 F 03/03/25 16:11 Pulse Rate 72 03/03/25 19:59 Respiratory Rate 16 03/03/25 19:59 Blood Pressure 133/63 03/03/25 19:59 Pulse Oximetry 90 03/03/25 19:59 Oxygen Delivery Me thod Nasal Cannula 03/03/25 19:12 Oxygen Flow Rate 2 03/03/25 19:12 MDM - Chest Pain Medical Decision Making Patient had presented from primary care's office for hypoxia and she had complaints of chest pain and shortness of breath for the past few days. History of COPD, is a current non-smoker but did quit 20 years ago. On arrival mildly hypoxic 88% on room air so placed on 2 L. After DuoNeb therapy and Solu-Medrol IV she is able to maintain above 90% on room air. Had some mild expiratory wheezing throughout on exam, but clinically did not appear in respiratory distress. Hypertensive initially as well but this was brought down over time this was likely secondary to her anxiety. Chest x-ray showing no acute findings, her D-dimer specifically negative ruling out PE, however had initially reported the chest pain radiated into the back so CT of the chest ordered to rule out any dissection. This was unremarkable other than some scattered patchy ground glass opacities, nonspecific. Her delta troponin negative, white count is not elevated, BNP is not elevated, rest of her labs are unremarkable. At this time query COPD exacerbation causing mild hypoxia that has resolved in the ED, I did offer her admission to the hospital for observation overnight but she is electing to treat outpatient. For this we will start her on doxycycline and steroids for home, is encouraged to follow-up with her primary care later this week and to return immediately if her breathing worsens, or she has any other new or concerning symptoms. The patient agrees with this plan at this time and knows to return if worse. Chart reviewed Lab Data 03/03/25 16:40 03/03/25 16:40 Radiology Impressions Chest X-Ray 03/03/25 16:27 IMPRESSION: No acute findings. Chest CT 03/03/25 17:19 IMPRESSION: 1. Bilateral lung generalized faint scattered patchy ground-glass opacities without consolidation. Differential nonspecific; anchor in clinical context (see comment below). 2. Right lower lobe 1.0 cm diameter poorly defined nodule (axial series 7, image 43). See comments and recommendations below. 3. Moderate age-appropriate degenerative spinal changes. Other chronic/non-acute findings as described above. 4. Calcified coronary artery disease is evident. (See comment below.) COMMENTS: 1. If the patient is experiencing symptoms referable to coronary artery disease recommend management as per chest pain guidelines. If the patient is asymptomatic consider reviewing modifiable cardiovascular risk factors and managing as per guidelines for primary prevention. 2. Interpretation of nonspecific ground-glass lung opacities should be anchored in the clinical presentation and laboratory data (differential diagnostic considerations include, infection (viral/atypical), inflammatory (organizing pneumonia, hypersensitivity pneumonitis), edema/hemorrhage. Neoplastic process (e.g., adenocarcinoma spectrum) is considered less likely; although not entirely excluded). Depending on clinical context, consider short interval radiographic follow-up or follow-up CT chest (e.g., 3 months or sooner for worsening symptoms or if otherwise indicated) to ensure resolution and exclude persistent lesions. 3. With regard to lung findings, specifically right lower lobe 1.0 cm diameter lung nodule, both low risk and high risk patients, consider CT Chest at 3 months, PET/CT, or biopsy (Reference: Hemalatha). REFERENCES: Hemalatha Monroy, et al. Guidelines for Management of Incidental Pulmonary Nodules Detected on CT Images: From the Fleischner Society 2017. Radiology. 2017;284(1):228-243. Laboratory Results WBC 7.17 10^3/uL (3.29-11.43) 03/03/25 16:40 RBC 4.77 10^6/uL (3.85-5.65) 03/03/25 16:40 Hgb 12.70 g/dL (11.27-16.99) 03/03/25 16:40 Hct 41.2 % (36-47) 03/03/25 16:40 MCV 86.4 fl (85-98) 03/03/25 16:40 MCH 26.6 pg (27-33) L 03/03/25 16:40 MCHC 30.8 g/dL (30-55) 03/03/25 16:40 RDW 14.4 % (12.1-15.1) 03/03/25 16:40 Plt Count 255 10^3/cmm (157-399) 03/03/25 16:40 MPV 9.8 fL (7.4-10.4) 03/03/25 16:40 Neut % (Auto) 73.5 % 03/03/25 16:40 Lymph % (Auto) 15.5 % 03/03/25 16:40 [place] % (Auto) 7.1 % 03/03/25 16:40 Eos % (Auto) 2.9 % 03/03/25 16:40 Baso % (Auto) 0.4 % 03/03/25 16:40 Neut # (Auto) 5.27 10^3/uL (1.8-7.7) 03/03/25 16:40 Lymph # (Auto) 1.1 10^3/uL (0.8-4.8) 03/03/25 16:40 [place] # (Auto) 0.5 10^3/uL (0.2-0.9) 03/03/25 16:40 Eos # (Auto) 0.2 10^3/uL (0.0-0.8) 03/03/25 16:40 Baso # (Auto) 0.0 10^3/uL (0.0-0.1) 03/03/25 16:40 Nucleated RBC % (auto) 0 % 03/03/25 16:40 Nucleated RBCs # 0.0 /100WBC 03/03/25 16:40 D-Dimer 0.37 ug/mLFEU (0-0.59) 03/03/25 16:40 Sodium 141 mmol/L (136-145) 03/03/25 16:40 Potassium 4.2 mmol/L (3.5-5.1) 03/03/25 16:40 Chloride 97 mmol/L (98-107) L 03/03/25 16:40 Carbon Dioxide 33 mmol/L (22-29) H 03/03/25 16:40 Anion Gap 15.2 (5-19) 03/03/25 16:40 BUN 14 mg/dL (6-20) 03/03/25 16:40 Creatinine 0.7 mg/dL (0.5-0.9) 03/03/25 16:40 GFR Calculation 86.2 mL/min (90-130) L 03/03/25 16:40 Glucose 97 mg/dL (65-115) 03/03/25 16:40 Calculated Osmolality 292 mOsm/kg (285-295) 03/03/25 16:40 Calcium 9.4 mg/dL (8.5-10.5) 03/03/25 16:40 Total Bilirubin 0.3 mg/dL (0.15-1.2) 03/03/25 16:40 AST 24 U/L (0-32) 03/03/25 16:40 ALT 23 U/L (0-33) 03/03/25 16:40 Alkaline Phosphatase 83 U/L (35-105) 03/03/25 16:40 Troponin T Baseline 18 ng/L (0-10) H 03/03/25 16:40 Troponin T 60 Minute 15.13 ng/L (0-10) H 03/03/25 17:18 Delta Troponin T -2.87 ABS# (0-10) L 03/03/25 17:18 NT-Pro-B Natriuret Pep 173 pg/mL (0-125) H 03/03/25 16:40 Total Protein 7.6 g/dL (6.6-8.7) 03/03/25 16:40 Albumin 4.0 g/dL (3.5-5.2) 03/03/25 16:40 Globulin 3.6 g/dL (1.3-4.6) 03/03/25 16:40 Urine Color Yellow (Yellow) 03/03/25 17:41 Urine Appearance Clear (CLEAR) 03/03/25 17:41 Urine pH 8.0 (5-7) A 03/03/25 17:41 Ur Specific [place] 1.014 (1.005-1.030) 03/03/25 17:41 Urine Protein Negative (Negative) 03/03/25 17:41 Urine Glucose (UA) Negative (Normal) 03/03/25 17:41 Urine Ketones Negative (Negative) 03/03/25 17:41 Urine Blood Negative (Negative) 03/03/25 17:41 Urine Nitrate Negative (Negative) 03/03/25 17:41 Urine Bilirubin Negative (Negative) 03/03/25 17:41 Urine Urobilinogen 1.0 mg/dL (Negative) 03/03/25 17:41 Ur Leukocyte Esterase Trace (Negative) A 03/03/25 17:41 Urine RBC 0-2 /hpf (0-2) 03/03/25 17:41 Urine WBC 0-5 /hpf (0-5) 03/03/25 17:41 Ur Squamous Epith Cells 0-5 /hpf (0-5) 03/03/25 17:41 Amorphous Sediment Not Reportable 03/03/25 17:41 Urine Bacteria None seen /hpf (NONE) 03/03/25 17:41 Hyaline Casts 0-4 /lpf H 03/03/25 17:41 Influenza A (PCR) Negative (Negative) 03/03/25 16:40 Influenza Type B (PCR) Negative (Negative) 03/03/25 16:40 RSV (PCR) Negative (Negative) 03/03/25 16:40 SARS-CoV-2 (PCR) Negative (Negative) 03/03/25 16:40 Discharge Plan Discharge Patient Disposition: Home Clinical Impression: COPD exacerbation Condition: Stable Prescriptions: New prednisone 20 mg tablet 60 mg PO ONCE 5 Days Qty: 15 0RF doxycycline hyclate 100 mg tablet 100 mg PO BID 10 Days Qty: 20 0RF No Action famotidine 20 mg tablet 20 mg PO DAILY fluticasone propion-salmeterol [Advair Diskus] 250-50 mcg/dose blister with device 1 inh inhalation BID cefdinir 300 mg capsule 300 mg PO BID 10 Days Qty: 20 0RF amlodipine 5 mg tablet 5 mg PO DAILY Qty: 30 0RF Advil 200 mg Tablet 800 mg PO Q6H PRN (Reason: Pain) Discharge Orders: Discharge ED (Routine); Ordered 03/03/25 Ordered By: Anthony Kim Referrals: Genan Caldwell FNP [Primary Care Provider, Unknown] Patient Instructions: Patient Portal & David Instructions Activity Restrictions/Additional Instructions: COPD Exacerbation Discharge Instructions Diagnosis: You were treated in the emergency department for a flare-up (exacerbation) of your chronic obstructive pulmonary disease (COPD). This means your breathing symptoms got worse, likely due to inflammation and possibly infection in your lungs. What We Found: - Your oxygen level was mildly low when you arrived but improved with breathing treatments - A CT scan of your chest showed mild ground glass opacity (some haziness in the lungs) - Blood tests ruled out a blood clot in your lungs - You responded well to nebulizer treatments and steroid medication Your Medications: You will take two medications at home: 1. Doxycycline 100 mg: Take one tablet by mouth twice daily for 10 days. This antibiotic helps treat any bacterial infection that may have triggered your flare-up. 2. Prednisone 60 mg: Take one tablet (or the prescribed number of tablets to equal 60 mg) by mouth once daily for 5 days. This steroid reduces inflammation in your lungs. Short courses of 5 days are as effective as longer courses and cause fewer side effects. Continue Your Regular COPD Medications: - Keep using your regular inhalers exactly as prescribed - Use your rescue inhaler (short-acting bronchodilator) as needed for shortness of breath What to Do at Home: - Rest and gradually increase your activity as you feel better - Drink plenty of fluids unless your doctor has told you to limit fluids - Avoid smoking and secondhand smoke - Avoid air pollution, strong fumes, and other lung irritants - Practice good hand hygiene to prevent infections When to Seek Emergency Care: Return to the emergency department or call 911 if you experience: - Worsening shortness of breath that does not improve with your rescue inhaler - Shortness of breath at rest - Chest pain - Confusion or difficulty staying awake - Blue or ricketts lips or fingernails - Fever over 100.4?F (38?C) - Coughing up blood - Swelling in your legs or ankles that is new or getting worse Follow-Up Care: - Schedule an appointment with your primary care provider within 1-2 weeks - Discuss pulmonary rehabilitation with your doctor at your follow-up visit, as this can improve your breathing, exercise ability, and quality of life - Make sure your doctor reviews your inhaler technique to ensure you are using your medications correctly - Ask about getting vaccinated against flu and pneumonia if you haven't already Important Reminders: - Finish all 10 days of the antibiotic even if you feel better - Do not stop the prednisone early unless instructed by your doctor - COPD exacerbations can happen again, so it's important to take your daily medications as prescribed and avoid triggers If you have any questions or concerns about your treatment, contact your primary care provider. 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
--- NOTE | 2025-03-03 17:19 | CTR_ITS ---
PROCEDURE INFORMATION: Exam: CT Chest With Contrast; Diagnostic Exam date and time: 03/03/2025 6:12 PM Age: 59 years old Clinical indication: Pain; Radiating; Additional info: Cp into back, SOB, neg ddimer TECHNIQUE: Imaging protocol: Diagnostic computed tomography of the chest with contrast. Total images: 433 Radiation optimization: All CT scans at this facility use at least one of these dose optimization techniques: automated exposure control; mA and/or kV adjustment per patient size (includes targeted exams where dose is matched to clinical indication); or iterative reconstruction. Contrast material: [id number]; Contrast volume: 100 ml; Contrast route: INTRAVENOUS (IV); COMPARISON: 1. CR XR chest 1V portable [id number] 03/03/2025 4:35 PM 2. CR XR chest 2V* [id number] 02/03/2025 2:36 PM RADIATION DOSE METRICS: Total DLP (mGy-cm): 891.8 FINDINGS: Thyroid: Thyroid lobes appear slightly thick, right lobe 0.8 mm diameter low-density presumed colloid cyst. Left lobe 0.7 cm diameter presumed colloid cyst. Left lobe posterior 0.7 cm diameter calcification. Trachea: Lower airway patent without internal defects, secretions, or debris. Lungs: Bibasilar streaky linear opacities characteristic of atelectasis or postinflammatory parenchymal scarring. Bilateral lung generalized faint scattered patchy ground-glass opacities without consolidation. Right lower lobe 1.0 cm diameter poorly defined nodule (axial series 7, image 43). Pleural spaces: No pathologic pleural thickening, significant pleural effusion or pneumothorax. Heart: Normal heart size. No pericardial fluid collection or pathologic thickening. Coronary arteries: Calcified coronary artery disease is evident. Lymph nodes: No lymphadenopathy. Vasculature: Aorta of normal caliber, contour, without dissection or significant aneurysmal dilatation. No major vessel critical narrowing, occlusion, or aneurysm. Liver: Liver diffusely increased fat content/fatty infiltration. No focal hepatic lesions identified; subtle or isoattenuating/isointense lesions may be obscured. Kidneys: Nonspecific incidental left perinephric fat stranding, possibly inflammatory or age-expected. Kidneys are not entirely included within the field of view such that this finding is not further characterized or specified. Bones/joints: Moderate generalized degenerative changes of the vertebral column, including multilevel osteophytes, degenerative disc height loss, and facet arthrosis, consistent with patient age. T11-12, T12-L1 level degenerative vacuum disc phenomenon and prominent ventral endplate osteophyte formation. No intrinsic osseous abnormality identified. Soft tissues: Soft tissues are normal as visualized, demonstrating no masses or swelling/induration. CT/CT chest w con* [id number] IMPRESSION: 1. Bilateral lung generalized faint scattered patchy ground-glass opacities without consolidation. Differential nonspecific; anchor in clinical context (see comment below). 2. Right lower lobe 1.0 cm diameter poorly defined nodule (axial series 7, image 43). See comments and recommendations below. 3. Moderate age-appropriate degenerative spinal changes. Other chronic/non-acute findings as described above. 4. Calcified coronary artery disease is evident. (See comment below.) COMMENTS: 1. If the patient is experiencing symptoms referable to coronary artery disease recommend management as per chest pain guidelines. If the patient is asymptomatic consider reviewing modifiable cardiovascular risk factors and managing as per guidelines for primary prevention. 2. Interpretation of nonspecific ground-glass lung opacities should be anchored in the clinical presentation and laboratory data (differential diagnostic considerations include, infection (viral/atypical), inflammatory (organizing pneumonia, hypersensitivity pneumonitis), edema/hemorrhage. Neoplastic process (e.g., adenocarcinoma spectrum) is considered less likely; although not entirely excluded). Depending on clinical context, consider short interval radiographic follow-up or follow-up CT chest (e.g., 3 months or sooner for worsening symptoms or if otherwise indicated) to ensure resolution and exclude persistent lesions. 3. With regard to lung findings, specifically right lower lobe 1.0 cm diameter lung nodule, both low risk and high risk patients, consider CT Chest at 3 months, PET/CT, or biopsy (Reference: Hemalatha). REFERENCES: Hemalatha Monroy et al. Guidelines for Management of Incidental Pulmonary Nodules Detected on CT Images: From the Fleischner Society 2017. Radiology. 2017;284(1):228-243.
[2025-03-03 17:21] LABS: Troponin(5th) Baseline 18 ng/L (0-10)
[2025-03-03 17:22] VITALS: BP 156/81; PULSE 75; RESP 18; O2SAT 93
--- NOTE | 2025-03-03 17:26 | ECG_ITS ---
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 Measurements Intervals [place] Rate: 74 P: 69 WI: 179 QRS: -37 QRSD: 146 T: 102 QT: 411 QTc: 458 Interpretive Statements SINUS RHYTHM POSSIBLE LEFT ATRIAL ENLARGEMENT [-0.1mV P-WAVE IN V1/V2] LEFT AXIS DEVIATION [QRS AXIS < -30] LEFT BUNDLE BRANCH BLOCK [120+ ms QRS DURATION, 80+ ms Q/S IN V1/V2, 85+ ms R IN I/aVL/V5/V6] Compared to ECG 03/03/2025 16:16:09 No significant changes Electronically Signed On 03-05-2025 17:59:58 [employer] by Laura Garcia M.D. [email or web address]
[2025-03-03 17:28] LABS: Respiratory Syncytial Virus Ce NEGATIVE (Negative); SARS-CoV-2 PCR NEGATIVE (Negative)
[2025-03-03 17:31] LABS: Alanine Aminotransferase 23 U/L (0-33); Albumin Level 4.0 g/dL (3.5-5.2); Alkaline Phosphatase 83 U/L (35-105); Anion Gap 15.2 (5-19); Aspartate Amino Transferase 24 U/L (0-32); Blood Urea Nitrogen 14 mg/dL (6-20); Calcium 9.4 mg/dL (8.5-10.5); Carbon Dioxide 33 mmol/L (22-29); Chloride 97 mmol/L (98-107); Globulin 3.6 g/dL (1.3-4.6); Glucose 97 mg/dL (65-115); NT Pro B Type Natriuretic Pept 173 pg/mL (0-125); Osmolality Calculated 292 mOsm/kg (285-295); Potassium 4.2 mmol/L (3.5-5.1); Sodium 141 mmol/L (136-145); Total Protein 7.6 g/dL (6.6-8.7)
[2025-03-03 17:45] VITALS: PULSE 78; RESP 20; O2SAT 93
[2025-03-03 17:55] LABS: Glucose Urine UA Negative (Normal); Nitrate Urine Negative (Negative); Specific Gravity, Urine 1.014 (1.005-1.030)
[2025-03-03 18:00] LABS: Add Urine Microscopic? YES
[2025-03-03] MEDS: iohexol 350 mg/mL 500 mL Btl (per mL) IV (18:20)
[2025-03-03] MEDS: methylPREDNISolone sod succ 125 mg/2 mL INJ IVP (18:42)
--- OUTSIDE RECORDS SUMMARY | 2025-03-03 19:06 | XMS_ITS | Continuity of Care Document ---
Author Organization [facility] Kwaku Drew [facility] Arlene, LDiana, 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 Her brother was recently diagnosed with colon cancer. She is going to see him this weekend. Not available 02/03/2025 15:26:45 Plan of Treatment Reminders Order Date Submit Date Provider Last Modified By Organization Details Last Modified Time Details Appointments OFFICE VISIT 15 2024 02:15P M DONNELL THAKKAR Not available Not available Not available [facility] CONSULT 2025 11:30A M Chilo Amaya MD Not available Not available Not available Lab None recorded. Referral gastroent erologist referral 2024 025 [email or web address] Chilo Amaya MD, [address] [place], [address], 02/05/2025 12:47:14 Procedures None recorded. Surgeries None recorded. Imaging MAMMO, screening , digital, bilateral 2024 025 [email or web address] [facility], [address] [place], [address], 02/23/2025 12:55:20 XR, chest, 2 view 2024 025 [email or web address] [facility] ([facility]), [address] [place], [address], 02/03/2025 15:33:20 Medication Orders escitalop arnav 5 mg tablet 2024 [facility], [address], [place], [address], 02/03/2025 15:27:06 Zithromax Z-Dirk 250 mg tablet 2024 025 [facility], [address], [address], 02/03/2025 15:27:05 promethaz ine-DM 6.25 mg-15 mg/5 mL oral syrup 2024 025 [facility], [address], [place], [address], 02/17/2025 05:02:07 Patient TargetsNo targets recorded. Patient InstructionsNo instructions recorded. 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 Referral for Screening for malignant neoplasm of colon Referring Physician: Genna Euceda, Family Medicine, Encounter Date: 02/03/2025 Results Created Date Observation Date Name Description Value Unit Range Abnormal Flag Note LastModifiedBy Organization Detail LastModifiedTime 02/02/2002/01/2025 phary ngeal patho gens DNA and RNA panel , HOME+n on-pr obe, throa t Strep A negati ve Not Available [facility] ([facility]) [address] [place], [address], 02/01/2025 08:14:04 02/02/2002/01/2025 phary ngeal patho gens DNA and RNA panel , HOME+n on-pr obe, throa t Rhinovirus negati ve Not Available [facility] ([facility]) [address] [place], [address], 02/01/2025 08:14:04 02/02/20 25 02/01/2025 phary ngeal patho gens DNA and RNA panel , HOME+n on-pr obe, throa t RSV negati ve Not Available [facility] ([facility]) [address] [place] [address], [phone], 02/01/2025 08:14:04 02/02/20 25 02/01/2025 phary ngeal patho gens DNA and RNA panel , HOME+n on-pr obe, throa t Influenza A negati ve Not Available [facility] ([facility]) [address] [place] [address], [phone], 02/01/2025 08:14:04 02/02/20 25 02/01/2025 phary ngeal patho gens DNA and RNA panel , HOME+n on-pr obe, throa t Influenza B negati ve Not Available [facility] ([facility]) [address] [place] [address], [phone], 02/01/2025 08:14:04 02/04/20 XR, chest , 2 view No observ ation record ed. [email or web address] [facility] ([facility]) [address] [place] [address], [phone], 02/04/2025 13:46:06 02/06/20 25 02/03/2025 XR, chest , 2 view No observ ation record ed. LANEY [facility] ([facility]) [address] [place] [address], [phone], 02/06/2025 13:31:23 Result Notes None recorded. Problems Name Problem SNOMED Code Status Onset Date Resolution Date Notes Provider Name and Address Organization Details Recorded Time Chronic obstructiv e pulmonary disease 99163919 Active 2022 BETHANIE Glynn - [facility] 12/11/202 4 13:05:17 Asthma 068074447 Active 2022 MARITA torres [facility] 4 13:04:58 Benign essential hypertensi on 1156205 Active 2022 MARITA torres [facility] 4 13:05:07 Type 2 diabetes mellitus without complicati on 890808892 Active 2022 MARITA torres [facility] 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 MARITA torres [facility] 4 13:06:39 History of cerebrovas cular accident 544987393 Active 2024June 2020 MARITA GRIFFIN melissa [facility] 5 16:30:49 Problem Notes None recorded. Procedures Surgical History Date Name Laterality Status Provider Name and Address Organization Details Recorded Time 02/04/20 25 plain X-ray of chest completed MARITA GRIFFIN [facility] 02/06/2025 13:31:00 09/10/19 25 plain X-ray of toe completed MARITA GRIFFIN [facility] 09/10/2024 17:32:42 09/10/19 25 screening for malignant neoplasm of cervix completed MARITA GRIFFIN [facility] 09/11/2024 13:32:30 03/26/19 05 Date of Last Pap Smear completed PEDRITO JACOBSON [facility], [facility] 12/20/2022 08:09:57 cholecystectomy completed PEDRITO JACOBSON [facility], L[facility]otaL[facility]ota[facility]ota 12/20/2022 08:04:44 hernia repair completed PEDRITO JACOBSON [facility], LKotaLAmanda 12/20/2022 08:05:12 Knee arthroscopy/surgery completed PEDRITO JACOBSON [facility], Maged 12/20/2022 08:06:11 delivery completed PEDRITO JACOBSON [facility], Maged 12/20/2022 08:08:03 [facility] tunnel [facility] 08:08:17 Imaging Results None recorded. Procedure Notes None recorded. Medical Equipment None Reported. Allergies Allergen ID Allergen Name Allergen Category Reaction Reaction Severity Criticality Documentation Date Start Date Code Code System Note Provider Name and Address Organization Details Recorded Time 3700 Dilaudid medicatio n respirato ry distress Not available Not available 08/22/2022 15288 3 RxNorm [facility], Maged 3 16:26:00 3701 codeine medicatio n vomiting Not available Not available 08/22/2022 2670 RxNorm [facility], Maged 3 16:26:10 19260 hydromorp forrest medicatio n anaphylax is Not available [facility] 02/26/20252015 3423 RxNorm Respi rator y distr ess, recei bryson CPR Not Available laney - External Data Service - prod 5 07:32:51 Medications Name Sig Start Date Stop Date Status Note LastModified by Organization Details LastModified Time silver sulfadiaz ine 1 % topical cream APPLY A 1/16 INCH THICK LAYER TO ENTIRE BURN AREA TWO TIMES DAILY 02/01 completed Not Available Not Available Not Available promethaz ine-DM 6.25 mg-15 mg/5 mL oral syrup Take 5 mL every 4 hours by oral route for 7 days. 02/17 completed Not Available Not Available Not Available fluticaso ne 250 mcg-salme terol 50 mcg/dose blistr powdr for inhalatio n INHALE 1 DOSE BY MOUTH TWICE DAILY 04/10 completed Not Available Not Available Not Available azithromy martha 250 mg tablet TAKE 2 TABLETS BY MOUTH ON DAY 1, AND THEN TAKE 1 TABLET BY MOUTH ONCE A DAY ON DAY 2 THROUGH DAY 5 active Not Available Not Available No t Available ibuprofen 200 mg capsule Take 3 capsules 3 times a day by oral route. 02/03 completed Not Available Not Available Not Available prednison e 20 mg tablet Take 1 tablet every day by oral route in the morning for 5 days. 10/14 completed Not Available Not Available Not Available isosorbid e mononitra te ER 30 mg tablet,ex tended release 24 hr Take 1 tablet by mouth once daily 04/10 completed Not Available Not Available Not Available Anucort-H C 25 mg supposito ry INSERT 1 SUPPOSIT ORY RECTALLY TWICE DAILY FOR 14 DAYS active Not Available Not Available No t Available amlodipin e 5 mg tablet TAKE 1 TABLET BY MOUTH ONCE DAILY active Not Available Not Available No t Available sulfameth oxazole 800 mg-trimet hoprim 160 mg tablet TAKE 1 TABLET BY MOUTH EVERY 12 HOURS FOR 10 DAYS 03/05 completed Not Available Not Available Not Available triamcino lone acetonide 0.1 % topical cream APPLY A THIN LAYER TO THE AFFECTED AREA(S) TOPICALL Y TWICE DAILY 02/03 completed Not Available Not Available Not Available cephalexi n 500 mg capsule Take 1 capsule 3 times a day by oral route for 7 days. 11/05 completed Not Available Not Available Not Available promethaz ine 25 mg/mL injection solution Take 1 mL by injectio n route. 07/16 completed Not Available Not Available Not Available metoprolo l tartrate 50 mg tablet TAKE 1 TO 2 TABLETS BY MOUTH TWICE DAILY NEEDED FOR BLOOD PRESSURE GREATER THAN 160 04/10 completed Not Available Not Available Not Available aspirin 81 mg tablet Take 1 tablet every day by oral route. active Not Available Not Available No t Available hydrochlo rothiazid e 25 mg tablet TAKE 1 TABLET BY MOUTH ONCE DAILY active Not Available Not Available No t Available mupirocin 2 % topical ointment APPLY A SMALL AMOUNT TO AFFECTED AREA 3 TIMES DAILY 02/01 completed Not Available Not Available Not Available albuterol sulfate HFA 90 mcg/actua tion aerosol inhaler INHALE 2 PUFFS BY MOUTH EVERY 4 HOURS NEEDED FOR WHEEZING OR SHORTNES S OF BREATH 02/03 completed Not Available Not Available Not Available cefdinir 300 mg capsule 04/14 completed Not Available Not Available Not Available hydrocort isone-pra moxine 1 %-1 % rectal cream INSERT 1 APPLICAT ION RECTALLY THREE TIMES DAILY NEEDED. 02/03 completed Not Available Not Available Not Available amoxicill in 875 mg-potass ium clavulana te 125 mg tablet Take 1 tablet every 12 hours by oral route for 7 days. 08/09 completed Not Available Not Available Not Available escitalop arnav 10 mg tablet Take 1 tablet every day by oral route for 30 days. 2024 active Not Available Not Available Not Avai lable cyclobenz aprine 5 mg tablet TAKE 1 TO 2 TABLETS BY MOUTH TWICE DAILY NEEDED FOR MUSCLE PAIN 11/18 completed Not Available Not Available Not Available escitalop arnav 5 mg tablet TAKE 1 TABLET BY MOUTH ONCE DAILY active Not Available Not Available No t Available Cinnamon 500 mg capsule Take 1 capsule every day by oral route. 02/03 completed Not Available Not Available Not Available aspirin 02/03 completed Not Available Not Available Not Available Advair Diskus bid 03/05 completed LAZ/LB; Recorded 06/01/19 23 3:38PM by Francisco Javier Romano, Office Visit; Refill Quantity : 3; Applicat or; Not Available Not Available Not Available One Daily Womens 50 Plus 1 tablet daily 02/03 completed Not Available Not Available Not Available Multi Vitamin 10/22 completed Not Available Not Available Not Available Breztri Aerospher e 160 mcg-9mcg- 4.8mcg/ac tuation HFA aerosol inhaler INHALE 2 PUFFS TWICE DAILY active Not Available Not Available No t Available albuterol 90 mcg-budes onide 80 mcg/actua tion HFA aerosol inhaler Inhale by inhalati on route. active Not Available Not Available No t Available Vitals Date Recorded Body height Body mass index (BMI) Body weight Oxygen saturation Heart rate Respiratory rate Systolic And Diastolic Provider Name and Address Organization Details Last Updated DateTime 5 165.1 cm 40.6 kg/m2 836200. 54 g 94 % 100 /min 26 /min 152/82 mm[Hg] MARITA GRIFFIN [facility] 14:51:18 Social History Question Answer Notes LastModified by Organizat ion Details LastModified Time Tobacco Smoking Status Former Smoker quit age 42 MARITA GRIFFIN [facility] 03/05/2024 13:08:10 What Is Your Level Of Caffeine Consumption? Moderate [email or web address] Information not available 02/03/2025 What Was The Date Of Your Most Recent Tobacco Screening? 02/01/2025 [email or web address] Information not available 02/01/2025 Sex: Unknown Functional Status Question Answer Note LastModified by Organizat ion Details LastModified Time Do you use any illicit or recreational drugs? No [email or web address] Information not available 08/22/2022 What is your level of alcohol consumption? Occasional [email or web address] Information not available 08/22/2022 Are you currently employed? Yes [employer] [email or web address] Information not available 03/05/2024 Are you able to walk independently without assistance or assistive devices? YESWOREST [email or web address] Information not available 03/05/2024 Are you able to care for yourself independently? Yes [email or web address] Information not available 03/05/2024 Mental Status None recorded. Family History Relationship Description Onset Age of this Age Resolved Age Notes LastModified by Organization Details LastModified Time Father Hypertensive disorder [email or web address] Not available 03/26 13:59:44 Father Myocardial infarction age 34 [email or web address] Not available 02/23 13:07:45 Mother Hypertensive disorder Not available 03/26 13:59:44 Brother Malignant neoplasm of colon [email or web address] Not available 02/03 14:48:00 Maternal Aunt Malignant neoplasm of colon [email or web address] Not available 02/03 14:48:00 Maternal Aunt Malignant neoplasm of breast [email or web address] Not available 02/03 14:48:34 Paternal Aunt Malignant neoplasm of breast [email or web address] Not available 02/03 14:48:34 Notes:Diabetes on both sides . Medical History Condition Response Coronary Artery Disease N Gout N Other N Blood Diseases N Kidney Stones N Hyperthyroidism N Blood Transfusion N Breast Cancer N Depression Y Hypothyroidism N Lung Disease N COPD Y Defects or Inherited Disease N Developmental or Behavioral Disorders N Breast Problem N Difficulty Swallowing N Anesthesia Complications N Meniere's disease N Anxiety Disorder Y Muscle, Joint, or Bone Problems N Vision or Eye Problems N Arthritis N Polyps N Infertility N Cancer N Varicosities N Stroke N Endometriosis N Bladder or Kidney Problems N High Cholesterol N Liver Disease N Fibromyalgia N Headaches N Kidney Disease N Allergies/Hayfever N Heart Problems N Ear or Hearing Problems N Hospitalizations N Thyroid Problems N GI Problems N ADD/ADHD N Skin Problems N Eating Disorder N Anemia N Constipation N Mental Illness N Ovarian Cancer N Diabetes N Bedwetting N Seizures/Epilepsy N Tuberculosis N Eczema N Diverticulitis N Abuse/Domestic Violence N Asthma N Reflux/GERD N Hepatitis N Heart Disease N Pulmonary Embolism N Pre-Eclampsia N Hypertension Y Chronic Ear Infections N Osteoporosis N Chicken Pox N Autism Spectrum Disorder (ASD) N Thrombophilias N Gynecological History Statement/Question Response Abnormal Pap N Date of Last Pap Smear 03/26/2004 Obstetrics History GPAL:G 0 P 0 0 0 0 Immunizations Vaccine Type Date Status Note Provider Nam e and Address Organization Details Recorded Time COVID-19, mRNA, LNP-S, PF, 30 mcg/0.3 mL dose 04/02/2020 [facility] 04/10/2023 13:57:48 COVID-19, mRNA, LNP-S, PF, 30 mcg/0.3 mL dose 07/24/2020 completed PEDRITO torres [facility] 04/10/2023 13:57:48 Hep B, adult 08/11/1996 completed PEDRITO torres [facility] 04/10/2023 13:57:48 Hep B, adult 09/15/1996 [facility] 04/10/2023 13:57:48 Hep B, adult 02/16/1997 completed PEDRITO torres [facility] 04/10/2023 13:57:48 COVID-19, mRNA, LNP-S, PF, 30 mcg/0.3 mL dose 03/28/2021 completed Luisa Avina MD [address] [place] [address], [phone], [facility] 08/22/2022 16:38:55 Past Encounters Encounter ID Performer Location Encounter Start Date Encounter Closed Date Diagnosis/Indication Diagnosis SNOMED-CT Code Diagnosis ICD10 Code Diagnosis IMO Codes Diagnosis Note [id number] DONNELL MAYER [facility] ([facility]) [address] [place] [address] 02/01/2025 08:01:46 02/01/2025 10:12:23 Acute upper respiratory infection 29456685 J06.9 452117 Increase po fluids. Rest. May use otc meds such as throat lozenges and fluticason e nasal spray as needed for symptoms. Return to clinic with any new or worsening symptoms. [id number] DONNELL THAKKAR [facility] ([facility]) [address] [place] [address] 02/03/2025 14:40:06 02/03/2025 15:33:19 Screening mammography 60597306 Z12.31 7853374 Screening for malignant neoplasm of colon 508505844 Z12.11 [id number] brother has stage 4 colon cancer Productive cough 5709216 5 R05.8 936520 Generalize d anxiety disorder 43684528 F41.1 715878 Health Concerns Section Related Observation LastModified by Organization Detai ls LastModified Time None Recorded Concern Status LastModified by Organization Details LastModified Time None Recorded Payers Encounter Date Sequence Insurance Name Policy Number Policy Willett Covered Member ID Willett Member ID Guarantor Name 02/03/2025 1 [facility] [id number] Radha Oneill [id number] Radha Oneill Notes Date Note Type Note Provider Name and Address Organization Details Recorded Time 02/03/2025 text/html CoughReported by PatientHPIFor severity, patient reportspain with coughbut reportsmoderate. For associated symptoms, patient reportschills,hoarsene ss, anddyspneabut reportsno fever. For quality, patient reportsproductive. For duration, patient reportsacute (<3 weeks). For context, patient reportsnon-smokerandhi story of asthma. Generalized Anxiety DisorderReported by PatientHPIFor onset/timing, patient reports___ months. For severity, patient reportsmoderate. GENNA EUCEDA, [facility] [address] [place], [address], [facility], Maged 02/03/2025 15:32:18 OBGyn Episode No OBEpisode recorded.
--- OUTSIDE RECORDS SUMMARY | 2025-03-03 19:06 | XMS_ITS | Data Portability ---
Author Organization BETHANIE [facility], [facility] Address [address] [address] Care Team Providers Care Music Adapter Name Role Phone GENNA EUCEDA Primary Care Provider Unavailabl e Assessment Encounter Date Assessment Date Assessment LastModified by Organization Details LastModified Time 10/22/2024 10/22/2024 Leave for for work starts 10/02/24 - 10/02/25, intermittent leave 1 time per week, episode last 1 day. Paperwork completed for her dizziness. Copy to patient and copy for chart. She will place cream on burn, it is bandaged today with HANSEL and telfa. Not available 10/22/2024 13:41:53 02/03/2025 02/03/2025 Patient here today for a follow-up from the [facility]. Her brother was recently diagnosed with colon cancer. She is going to see him this weekend. Not available 02/03/2025 15:26:45 03/03/2025 03/03/2025 Discussed situation with patient. Advised her I felt she should go to the ER for further evaluation. Concerns would be for a PE or worsening pneumonia. 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 Not available 03/03/2025 16:53:29 Plan of Treatment Reminders Order Date Submit Date Provider Last Modified By Organization Details Last Modified Time Details Appointments OFFICE VISIT 15 2024 02:15P DONNELL BERNAL Not available Not available Not available [facility] CONSULT 2025 11:30A M Chilo Amaya MD Not available Not available Not available Lab pharyngea l pathogens DNA and RNA panel, HOME+non-p robe, throat 2024 [facility] ([facility] [address] [place], [address], 02/01/2025 08:36:55 Referral gastroent erologist referral 2024 [email or web address] Chilo Amaya MD, [address] [place], [address], 02/05/2025 12:47:14 Procedures None recorded. Surgeries None recorded. Imaging MAMMO, screening , digital, bilateral 2024 [email or web address] App Press [facility], [address] [place], [address], 02/23/2025 12:55:20 XR, chest, 2 view 2024 [facility] ([facility]), [address] [place], [address], 02/03/2025 15:33:20 Medication Orders escitalop arnav 10 mg tablet 2024 [facility], [address], [place], [address], 03/03/2025 16:56:26 escitalop arnav 5 mg tablet 2024 025 [facility] 15, [address], [place], [address], 02/03/2025 15:27:06 Zithromax Z-Dirk 250 mg tablet 2024 025 [facility] 15, [address], [place], [address], 02/03/2025 15:27:05 promethaz ine-DM 6.25 mg-15 mg/5 mL oral syrup 2024 025 [facility] 15, [address], [place], [address], 02/17/2025 05:02:07 silver sulfadiaz ine 1 % topical cream 2024 025 [facility] 15, [address], [place], [address], 02/01/2025 10:52:34 cephalexi n 500 mg capsule 2024 025 [facility] 15, [address], [place], [address], 11/05/2024 05:02:14 prednison e 20 mg tablet 2024 025 [facility] 15, [address], [place], [address], 10/14/2024 05:00:56 azithromy martha 250 mg tablet 2024 025 [facility] 15, [address], [place], [address], 10/22/2024 14:30:31 Patient TargetsNo targets recorded. Patient Instructions Encounter Date Encounter Id Patient Instructions Last Modified By Organization Details Last Modified Time 10/22/2024 [id number] Call or return for questions or concerns. Not available 10/22/2024 13:41:11 03/03/2025 [id number] Call or return for questions or concerns. Not available 03/03/2025 16:53:42 Reason for Referral Medical Sales Referral for Screening for malignant neoplasm of colon Referring Physician: Genna Euceda, Family Medicine, Encounter Date: 02/03/2025 Results Created Date Observation Date Name Description Value Unit Range Abnormal Flag Note LastModifiedBy Organization Detail LastModifiedTime 09/10/1909/09/2024 CMP (FEMA LE) glucose 95.0 mg/dL 60.0-9 9.0 Not Available [facility] [address] [facility], [place], [address], 09/09/2024 12:14:28 09/10/19 25 09/09/2024 CMP (FEMA LE) BUN (blood urea nitrogen) 19.0 mg/dL 10.0-2 6.0 Not Available [facility] [address] [facility], [place], [address], 09/09/2024 12:14:28 09/10/19 25 09/09/2024 CMP (FEMA LE) creatinine (serum) 0.7 mg/dL 0.4-1. 5 Not Available [facility] [address] [address], [place], [address], 09/09/2024 12:14:28 09/10/19 25 09/09/2024 CMP (FEMA LE) BUN/creatini ne ratio 27.14 ratio Not Available [facility] [address] [address], [place], [address], 09/09/2024 12:14:28 09/10/19 25 09/09/2024 CMP (FEMA LE) eGFR calculated 91.7 Not Available [facility] [address] [address], [place], [address], 09/09/2024 12:14:28 09/10/19 25 09/09/2024 CMP (FEMA LE) total protein 8.1 g/dL 6.0-8. 5 Not Available [facility] [address] [address], [place], [address], 09/09/2024 12:14:28 09/10/19 25 09/09/2024 CMP (FEMA LE) total bilirubin 0.4 mg/dL 0.2-1. 3 Not Available [facility] [address] [facility] [address] [facility], [place], [address], 09/09/2024 12:14:28 09/10/19 25 09/09/2024 CMP (FEMA LE) albumin 4.1 g/dL 3.5-5. 5 Not Available [facility] [address] [facility], [place], [address], 09/09/2024 12:14:28 09/10/19 25 09/09/2024 CMP (FEMA LE) globulin 4.0 calc Not Available [facility] [address] [facility], [place], [address], 09/09/2024 12:14:28 09/10/19 25 09/09/2024 CMP (FEMA LE) AST (SGOT) 26.0 U/L 0.0-46 .0 Not Available [facility] [address] [facility], [place], [address], 09/09/2024 12:14:28 09/10/19 25 09/09/2024 CMP (FEMA LE) altv (SGPT) 27.0 U/L 13.0-6 9.0 normal Not Available [facility] [address] [facility] [address], [place], [address], 09/09/2024 12:14:28 09/10/19 25 09/09/2024 CMP (FEMA LE) A/G ratio 1.0 ratio Not Available [facility] [address] [facility] [address], [place], [address], 09/09/2024 12:14:28 09/10/19 25 09/09/2024 CMP (FEMA LE) ALP phos 83.0 U/L 30.0-1 40.0 normal Not Available [facility] [address] [facility], [place], [address], 09/09/2024 12:14:28 09/10/19 25 09/09/2024 CMP (FEMA LE) calcium 9.7 mg/dL 8.4-10 .5 Not Available [facility] [address] [facility] [address], [place], [address], 09/09/2024 12:14:28 09/10/19 25 09/09/2024 CMP (FEMA LE) sodium 143.0 mmol/ L 136.0- 145.0 Not Available [facility] [address] [facility] [address], [place], [address], 09/09/2024 12:14:28 09/10/19 25 09/09/2024 CMP (FEMA LE) potassium 3.8 mmol/ L 3.5-5. 1 Not Available [facility] [address] [facility] 1, [place], [address], 09/09/2024 12:14:28 09/10/19 25 09/09/2024 CMP (FEMA LE) chloride 99.0 mmol/ L 98.0-1 10.0 normal Not Available [facility] [address] [facility] 1, [place], [address], 09/09/2024 12:14:28 09/10/19 25 09/09/2024 CMP (FEMA LE) C02 37.0 mmol/ L 22.0-3 1.0 high Not Available [facility] [address] [facility] 1, [place], [address], 09/09/2024 12:14:28 09/10/19 25 09/09/2024 CMP (FEMA LE) anion gap 7.0 calc Not Available [facility] [address] [facility] 1, [place], [address], 09/09/2024 12:14:28 09/10/19 25 09/09/2024 CMP (FEMA LE) osmolality 297.1 calc Not Available [facility] [address], [place], [address], 09/09/2024 12:14:28 09/10/19 25 09/09/2024 CBC WBC 7.5 x10 4.0-10 .5 Not Available [facility] [address] [facility], [place], [address], 09/09/2024 12:14:31 09/10/19 25 09/09/2024 CBC RBC 4.68 x10 3.50-5 .50 Not Available [facility] [address] [facility] [address], [place], [address], 09/09/2024 12:14:31 09/10/19 25 09/09/2024 CBC HGB 12.9 g/dL 12.0-1 6.0 Not Available [facility] [address] [facility] [address], [place], [address], 09/09/2024 12:14:31 09/10/1909/09/2024 CBC HCT 41.3 % 37.0-4 7.0 Not Available [facility] [address] [facility] 1, [place], [address], 09/09/2024 12:14:31 09/10/1909/09/2024 CBC MCV 88.2 fL 80.0-9 9.9 Not Available [facility] [address] [facility] [address], [place], [address], 09/09/2024 12:14:31 09/10/1909/09/2024 CBC MCH 27.5 pg 27.0-3 2.0 Not Available [facility] [address] [facility] [address], [place], [address], 09/09/2024 12:14:31 09/10/19 25 09/09/2024 CBC MCHC 31.1 g/dL 32.0-3 6.0 low Not Available [facility] [address] [facility] 1, [place], [address], 09/09/2024 12:14:31 09/10/19 25 09/09/2024 CBC RDW 14.2 % 11.5-1 4.5 Not Available [facility] [address] [facility], [place], [address], 09/09/2024 12:14:31 09/10/1909/09/2024 CBC plt 288.0 x10 140.0- 451.0 Not Available [facility] [address] [facility] 1, [place], [address], 09/09/2024 12:14:31 09/10/19 25 09/09/2024 CBC lymphocytes % 15.9 % 20.0-5 0.0 low Not Available [facility] [address] [facility] 1, [place], [address], 09/09/2024 12:14:31 09/10/19 25 09/09/2024 CBC granulcytes % 74.4 % 30.0-7 0.0 high Not Available [facility] [address] [facility] 1, [place], [address], 09/09/2024 12:14:31 09/10/19 25 09/09/2024 CBC monocytes % 8.0 % 2.0-16 .0 Not Available [facility] [address] [facility], [place], [address], 09/09/2024 12:14:31 09/10/19 25 09/09/2024 CBC granulcytes# 5.6 x10 Not Agnes ilable [facility] [address] [facility], [place], [address], 09/09/2024 12:14:31 09/10/19 25 09/09/2024 CBC lymphocytes # 1.2 x10 Not Available [facility] [address] [facility] 1, [place], [address], 09/09/2024 12:14:31 09/10/19 25 09/09/2024 CBC monocytes # 0.6 x10 Not Avai lable [facility] [address] [facility] 1, [place], [address], 09/09/2024 12:14:31 09/10/19 25 09/09/2024 HBA1C hemaglobin A1C 5.8 4.2-6. 5 Not Available [facility] [address] [facility] [address], [place], [address], 09/09/2024 12:14:33 09/10/19 25 09/10/2024 SURES WAB(R ) ADVAN GARY VAGIN ITIS PLUS, TMA sureswab(R) adv bacterial vaginosis (bv), tma NEGATI VE negati ve normal Not Available [address] [address] [place], [address], 09/10/2024 09:53:45 09/10/19 25 09/10/2024 SURES WAB(R ) ADVAN GARY VAGIN ITIS PLUS, TMA mac species NOT DETECT ED not detect ed normal Not Available [facility] [address] [address] [place], [address], 09/10/2024 09:53:45 09/10/19 25 09/10/2024 SURES WAB(R ) ADVAN GARY VAGIN ITIS PLUS, TMA mac glabrata NOT DETECT ED not detect ed normal Alia da speci es C. albic ans, C. tropi calis , C. parap bee is, and/o r C. dubli niens is can be detec sudheer, but not diffe renti ated, in the Alia da spp. resul t. Not Available [facility] [address] [address] [place], [address], 09/10/2024 09:53:45 09/10/19 25 09/10/2024 SURES WAB(R ) ADVAN GARY VAGIN ITIS PLUS, TMA trichomonas vaginalis (TV), tma NOT DETECT ED not detect ed normal Not Available [facility] [address] [address] [place], [address], 09/10/2024 09:53:45 09/10/19 25 09/10/2024 SURES WAB(R ) ADVAN GARY VAGIN ITIS PLUS, TMA chlamydia trachomatis RNA, tma, urogenital NOT DETECT ED not detect ed normal Not Available [facility] [address] [address] [place], [address], 09/10/2024 09:53:45 09/10/19 25 09/10/2024 SURES WAB(R ) ADVAN GARY VAGIN ITIS PLUS, TMA neisseria gonorrhoeae RNA, tma, urogenital NOT DETECT ED not detect ed normal For addit ional roland gray refer to https ://ed ucati on.[employer]/f aq/FA Q154 (This link is being provi ded for monroe boyer/ jamie torres purpo ses only. ) Not Available [address] [place], [address], 09/10/2024 09:53:45 09/10/1909/11/2024 IMAGE -GUID ED PAP W/AGE BASED SCR TUTU COLS comment This order for age-b ased cervi jaswinder cance r and STI scree caitlin follo ws ACOG guide lines (PB 168, 140, FAQ07 1). See indiv idual assay s for perfo rming site locat ion. Not Available [facility] [address] [address] [place], [address], 09/11/2024 13:27:04 09/10/19 25 09/11/2024 IMAGE -GUID ED PAP W/AGE BASED SCR TUTU COLS clinical information: normal Unique l exam Not Available [address], [address], 09/11/2024 13:27:04 09/10/19 25 09/11/2024 IMAGE -GUID ED PAP W/AGE BASED SCR TUTU COLS LMP: normal NONE GIVEN Not Available [address], [address], 09/11/2024 13:27:04 09/10/19 25 09/11/2024 IMAGE -GUID ED PAP W/AGE BASED SCR TUTU COLS prev. Pap: normal NONE GIVEN Not Available [address], [address], 09/11/2024 13:27:04 09/10/19 25 09/11/2024 IMAGE -GUID ED PAP W/AGE BASED SCR TUTU COLS prev. BX: normal NONE GIVEN Not Available [address], [address], 09/11/2024 13:27:04 09/10/19 25 09/11/2024 IMAGE -GUID ED PAP W/AGE BASED SCR TUTU COLS source: normal Cervi x, Endoc ervix Not Available [address], [address], 09/11/2024 13:27:04 09/10/19 25 09/11/2024 IMAGE -GUID ED PAP W/AGE BASED SCR TUTU COLS statement of adequacy: normal Satis facto ry for evalu ation . Endoc ervic al/tr ansfo rmati on zone compo nent prese nt. Age and/o r menst rual statu s not provi ded Not Available [address], [address], 09/11/2024 13:27:04 09/10/19 25 09/11/2024 IMAGE -GUID ED PAP W/AGE BASED SCR TUTU COLS interpretati on/result: normal Cytol ogy Resul ts: Negat enzo for intra epith elial lesio n or malig hemalatha . Not Available [address] [address] [place], [address], 09/11/2024 13:27:04 09/10/19 25 09/11/2024 IMAGE -GUID ED PAP W/AGE BASED SCR TUTU COLS comment: normal This Pap test has been evalu ated with compu ter janessa willard techn ology . Not Available [address] [address] [place], [address], 09/11/2024 13:27:04 09/10/19 25 09/11/2024 IMAGE -GUID ED PAP W/AGE BASED SCR TUTU COLS cytotechnolo gist: normal [facility], CT( CP) CT scree caitlin locat ion: [address] [address] [place] [address] Not Available [employer] [address] [address] [place], [address], 09/11/2024 13:27:04 09/10/19 25 09/11/2024 IMAGE -GUID ED PAP W/AGE BASED SCR TUTU COLS comment EXPLA NATOR Y NOTE: The Pap is a scree caitlin test for cervi jaswinder cance r. It is not a diagn ostic test and is subje ct to false negat enzo and false posit enzo resul ts. It is most relia ble when a satis facto ry sampl e, regul liliana obtai stanislaw, is submi tted with relev ant clini jaswinder findi ngs and histo ry, and when the Pap resul t is evalu ated along with histo maricarmen and curre nt clini jaswinder infor matio n. Not Available [employer] [address] [address] [place], [address], 09/11/2024 13:27:04 09/10/19 25 09/11/2024 IMAGE -GUID ED PAP W/AGE BASED SCR TUTU COLS HPV MRNA E6/E7 NOT DETECT ED not detect ed normal Metho dolog y: Trans cript ion-M ediat ed Ampli ficat ion This assay detec ts E6/E7 viral messe nger RNA (mRNA ) from 14 high- risk HPV types (16,1 8,31, 33,35 ,39,4 5,51, 52,56 ,58,5 9,66, 68). Cervi jaswinder sourc es are requi red for HPV testi ng. If a vagin al sourc e from a patie nt who has had a total hyste recto my with remov al of cervi x was submi tted, pleas e conta ct the testi ng labor atory for alter nativ e testi ng optio ns. For addit ional infor roland pan e refer to http: //[facility] bon boyer.que stdia gnost ics.c om/fa q/FAQ 129v1 (This link if provi ded for infor anisa boyer/ educa nazanin l purpo ses only. ) Not Available [facility] [address] [place], [address], 09/11/2024 13:27:04 02/02/20 25 02/01/2025 phary ngeal patho gens DNA and RNA panel , HOME+n on-pr obe, throa t Strep A negati ve Not Available [facility] ([facility]) [address] [place] [address], [address], 02/01/2025 08:14:04 02/02/20 25 02/01/2025 phary ngeal patho gens DNA and RNA panel , HOME+n on-pr obe, throa t Rhinovirus negati ve Not Available [facility] ([facility]) [address] [place] [address], [address], 02/01/2025 08:14:04 02/02/20 25 02/01/2025 phary ngeal patho gens DNA and RNA panel , HOME+n on-pr obe, throa t RSV negati ve Not Available [facility] ([facility]) [address] [place], [address], 02/01/2025 08:14:04 02/02/20 25 02/01/2025 phary ngeal patho gens DNA and RNA panel , HOME+n on-pr obe, throa t Influenza A negati ve Not Available [facility] ([facility]) [address] [place], [address], 02/01/2025 08:14:04 02/02/2002/01/2025 phary ngeal patho gens DNA and RNA panel , HOME+n on-pr obe, throa t Influenza B negati ve Not Available [facility] ([facility]) [address] [place], [address], 02/01/2025 08:14:04 09/11/19 25 09/09/2024 XR, toe(s ), 2 or more view No observ ation record ed. [email or web address] [facility] [address] [place], [address], 09/10/2024 17:33:00 02/04/20 XR, chest , 2 view No observ ation record ed. [email or web address] [facility] ([facility]) [address] [place], [address], 02/04/2025 13:46:06 02/06/20 25 02/03/2025 XR, chest , 2 view No observ ation record ed. LANEY [facility] ([facility]) [address] [place] [address], [address], 02/06/2025 13:31:23 Result Notes None recorded. Problems Name Problem SNOMED Code Status Onset Date Resolution Date Notes Provider Name and Address Organization Details Recorded Time Chronic obstructiv e pulmonary disease 33569432 Active 2022 MARITA GABY null, [facility] 4 13:05:17 Asthma 426010777 Active 2022 MARITA torres [facility] 4 13:04:58 Benign essential hypertensi on 6526855 Active 2022 MARITA torres [facility] 4 13:05:07 Type 2 diabetes mellitus without complicati on 294908301 Active 2022 MARITA torres [facility] 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 MARITA torres [facility], MarilinLKotaCKota 4 13:06:39 History of cerebrovas cular accident 470839108 Active 2024June 2020 MARITA torres [facility] 5 16:30:49 Problem Notes None recorded. Procedures Surgical History Date Name Laterality Status Provider Name and Address Organization Details Recorded Time 02/04/20 25 plain X-ray of chest completed MARITA GABY [facility] 02/06/2025 13:31:00 09/10/19 25 plain X-ray of toe completed MARITACHER GRIFFIN [facility] 09/10/2024 17:32:42 09/10/19 25 screening for malignant neoplasm of cervix completed [facility], LKotaL.CKota 09/11/2024 13:32:30 03/26/19 05 Date of Last Pap Smear completed PEDRITO JACOBSON [facility], LKotaLKotaCKota 12/20/2022 08:09:57 cholecystectomy completed PEDRITO JACOBSON [facility], LKotaLAmanda 12/20/2022 08:04:44 hernia repair completed [facility], Maged 12/20/2022 08:05:12 [facility] 08:06:11 delivery completed [facility], [facility] 12/20/2022 08:08:03 Carpal tunnel surgery completed [facility], [facility] 12/20/2022 08:08:17 Imaging Results None recorded. Procedure Notes None recorded. Medical Equipment None Reported. Allergies Allergen ID Allergen Name Allergen Category Reaction Reaction Severity Criticality Documentation Date Start Date Code Code System Note Provider Name and Address Organization Details Recorded Time 3700 Dilaudid medicatio n respirato ry distress Not available Not available 08/22/2022 39704 3 [facility] 16:26:00 3701 codeine medicatio n vomiting Not available Not available 08/22/2022 2670 [facility] 3 16:26:10 73208 [employer] forrest medicatio n anaphylax is Not available [facility] 02/26/20252015 3423 RxNorm Respi rator y [...] weight Oxygen saturation Heart rate Respiratory rate Body temperature Systolic And Diastolic Provider Name and Address Organization Details Last Updated DateTime 5 165.1 cm 39.9 kg/m2 711142. 17 g 94 % 88 /min 16 /min 98.5 [degF] 160/100 mm[Hg] Nicole Clayton [facility] 5 13:02:50 Date Recorded Body height Body mass index (BMI) Body weight Oxygen saturation Heart rate Respiratory rate Systolic And Diastolic Provider Name and Address Organization Details Last Updated DateTime 5 165.1 cm 39.8 kg/m2 573634. 58 g 93 % 86 /min 24 /min 148/72 mm[Hg] MARITA [facility] 5 12:54:39 Date Recorded Body height Body mass index (BMI) Body weight Body temperature Heart rate Oxygen saturation Systolic And Diastolic Provider Name and Address Organization Details Last Updated DateTime 5 165.1 cm 40 kg/m2 990832. 27 g 98 [degF] 77 /min 96 % 158/86 mm[Hg] Tashia Francois [facility] 5 08:16:14 Date Recorded Body height Body mass index (BMI) Body weight Oxygen saturation Heart rate Respiratory rate Systolic And Diastolic Provider Name and Address Organization Details Last Updated DateTime 5 165.1 cm 40.6 kg/m2 994501. 54 g 94 % 100 /min 26 /min 152/82 mm[Hg] MARITA [facility] 5 14:51:18 Date Recorded Body height Body mass index (BMI) Body weight Oxygen saturation Heart rate Respiratory rate Body temperature Oxygen saturation Oxygen saturation Systolic And Diastolic Provider Name and Address Organization Details Last Updated DateTime 5 165.1 cm 40.9 kg/m2 058205. 72 g 85 % 80 /min 20 /min 98.6 [degF] 91 % 75 % 154/90 mm[Hg] MARITA GRIFFIN [facility] 5 16:27:26 Social History Question Answer Notes LastModified by Organizat ion Details LastModified Time Tobacco Smoking Status [facility] age 42 [facility] 13:08:10 What Is Your Level Of Caffeine Consumption? Moderate [email or web address] Information not available 02/03/2025 What Was The Date Of Your Most Recent Tobacco Screening? 02/01/2025 [email or web address] Information not available 02/01/2025 Sex: Unknown Functional Status Question Answer Note LastModified by Organizat ion Details LastModified Time Do you use any illicit or recreational drugs? No [email or web address] Information not available 08/22/2022 What is your level of alcohol consumption? Occasional Information not available 08/22/2022 Are you currently employed? Yes [employer] Information not available 03/05/2024 Are you able to walk independently without assistance or assistive devices? YESWOREST [email or web address] Information not available 03/05/2024 Are you able to care for yourself independently? Yes [email or web address] Information not available 03/05/2024 Mental Status None recorded. Family History Relationship Description Onset Age of this Age Resolved Age Notes LastModified by Organization Details LastModified Time Father Hypertensive disorder [email or web address] Not available 03/26 13:59:44 Father Myocardial infarction age 36 [email or web address] Not available 02/23 13:07:45 Mother Hypertensive disorder [email or web address] Not available 03/26 13:59:44 Brother Malignant neoplasm of colon [id number] Not available 02/03 14:48:00 Maternal Aunt Malignant neoplasm of colon [id number] Not available 02/03 14:48:00 Maternal Aunt Malignant neoplasm of breast [id number] Not available 02/03 14:48:34 Paternal Aunt Malignant neoplasm of breast [id number] Not available 02/03 14:48:34 Notes:Diabetes on both sides . Medical History Condition Response Coronary Artery Disease N Other N Gout N Kidney Stones N Blood Diseases N Hyperthyroidism N Breast Cancer N Blood Transfusion N Depression Y COPD Y Lung Disease N Hypothyroidism N Developmental or Behavioral Disorders N Defects or Inherited Disease N Breast Problem N Difficulty Swallowing N Anesthesia Complications N Meniere's disease N Anxiety Disorder Y Muscle, Joint, or Bone Problems N Vision or Eye Problems N Arthritis N Polyps N Infertility N Cancer N Varicosities N Stroke N Endometriosis N Bladder or Kidney Problems N High Cholesterol N Liver Disease N Headaches N Fibromyalgia N Kidney Disease N Allergies/Hayfever N Heart [...] 30 mcg/0.3 mL dose 04/02/2020 completed PEDRITO torres [facility] 04/10/2023 13:57:48 COVID-19, mRNA, LNP-S, PF, 30 mcg/0.3 mL dose 07/24/2020 [facility]/10/[facility]23 13:57:48 Hep B, adult 08/11/1996 completed PEDRITO torres [facility] 04/10/2023 13:57:48 Hep B, adult 09/15/1996 [facility] 04/10/2023 13:57:48 Hep B, adult 02/16/1997 completed PEDRITO torres [facility] 04/10/2023 13:57:48 COVID-19, mRNA, LNP-S, PF, 30 mcg/0.3 mL dose 03/28/2021 completed Luisa Avina MD [address] [place] [address], [phone], [facility], [facility] 08/22/2022 16:38:55 Past Encounters Encounter ID Performer Location Encounter Start Date Encounter Closed Date Diagnosis/Indication Diagnosis SNOMED-CT Code Diagnosis ICD10 Code Diagnosis IMO Codes Diagnosis Note [id number] Luisa Avina MD [facility] ([facility]) [address] [place] [address] 08/22/2022 16:16:55 08/22/2022 17:23:56 Nasal congestion 28465049 R09.81 Chronic ob structive pulmonary disease 09768760 J44.9 f/u if worsening or not improved [id number] Luisa Avina MD [facility] ([facility]) [address] [place] [phone] 04/10/2023 13:47:02 04/10/2023 17:32:33 Dizziness 886568257 R42 viral labrynthit is v BPV v other. if not improved or if other symptoms develop pt shoudl report to the ER. Nausea and vomiting 1693 1999 R11.2 OTC meclizine Influenza- like illness 91554240 B34.9 rest, hydration [id number] Luisa Avina MD [facility] ([facility]) [address] [place] [phone] 07/17/2023 16:11:20 07/18/2023 17:36:42 Essential hypertension 59555674 I10 refill needed Pain in le ft lower limb 656700785 M79.605 Left-sided piriformis syndrome [id number] 87593 M54.32 stretching , heat, massage, muscle relaxer prn.f/u if worsening or not improved [id number] Robert Hoff MD [facility] ([facility]) [address] [place] [address] 5 11/19/2023 10:53:53 11/19/2023 11:38:54 Acute otitis media 0086699 H66.93 Upper respirator y infection but she has developed bilateral ear infections . Recommend starting antibiotic s. Continue over-the-c ounter medication to help with symptom management , drinking plenty of fluids, and rest. Follow-up as needed Acute uppe r respiratory infection 79378767 J06.9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
--- OUTSIDE RECORDS SUMMARY | 2025-03-03 19:07 | XMS_ITS | Continuity of Care Document ---
Author Organization [place] - Kwaku Marquez [facility] Arlene, Maged, [facility] ([facility]) Address [address] [place] [address] Care Team Providers Care News Photographer Name Role Phone ANDREAS EUCEDA Primary Care Provider Unavailabl e Assessment Encounter Date Assessment Date Assessment LastModified by Organization Details LastModified Time 03/03/2025 03/03/2025 Discussed situation with patient. Advised her I felt she should go to the ER for further evaluation. Concerns would be for a PE or worsening pneumonia. She has a newspaper delivery driver that will take her right now. Not available 03/03/2025 16:53:29 Plan of Treatment Reminders Order Date Submit Date Provider Last Modified By Organization Details Last Modified Time Details Appointments OFFICE VISIT 15 2024 02:15P DONNELL BERNAL Not available Not available Not available [facility] CONSULT 2025 11:30A M Chilo Amaya MD Not available Not available Not available Lab None recorded. Referral None recorded. Procedures None recorded. Surgeries None recorded. Imaging None recorded. Medication Orders escitalop arnav 10 mg tablet 2024 025 [facility], [address], [place], [address], 03/03/2025 16:56:26 Patient TargetsNo targets recorded. Patient Instructions Encounter Date Encounter Id Patient Instructions Last Modified By Organization Details Last Modified Time 03/03/2025 [id number] Call or return for questions or concerns. Not available 03/03/2025 16:53:42 Reason for Referral None Reported. Results Created Date Observation Date Name Description Value Unit Range Abnormal Flag Note LastModifiedBy Organization Detail LastModifiedTime 02/02/2002/01/2025 phary ngeal patho gens DNA and RNA panel , HOME+n on-pr obe, throa t Strep A negati ve Not Available [facility] ([facility]) [address] [place], [address], 02/01/2025 08:14:04 02/02/2002/01/2025 phary ngeal patho gens DNA and RNA panel , HOME+n on-pr obe, throa t Rhinovirus negati ve Not Available [facility] ([facility]) [address] [place] [address], [phone], 02/01/2025 08:14:04 02/02/2002/01/2025 phary ngeal patho gens DNA and RNA panel , HOME+n on-pr obe, throa t RSV negati ve Not Available [facility] ([facility]) [address] [place] [address], [phone], 02/01/2025 08:14:04 02/02/2002/01/2025 phary ngeal patho gens DNA and RNA panel , HOME+n on-pr obe, throa t Influenza A negati ve Not Available [facility] ([facility]) [address] [place] [address], [phone], 02/01/2025 08:14:04 02/02/2002/01/2025 phary ngeal patho gens DNA and RNA panel , HOME+n on-pr obe, throa t Influenza B negati ve Not Available [facility] ([facility]) [address] [place] [address], [phone], 02/01/2025 08:14:04 02/04/20 XR, chest , 2 view No observ ation record ed. [email or web address] [facility] ([facility]) [address] [place] [address] [place], [address], 02/04/2025 13:46:06 02/06/20 25 02/03/2025 XR, chest , 2 view No observ ation record ed. LANEY [facility] ([facility]) [address] [place], [address], 02/06/2025 13:31:23 Result Notes None recorded. Problems Name Problem SNOMED Code Status Onset Date Resolution Date Notes Provider Name and Address Organization Details Recorded Time Chronic obstructiv e pulmonary disease 28214630 Active 2022 MARITA torres [facility] 4 13:05:17 Asthma 258086682 Active 2022 MARITA torres [facility] 4 13:04:58 Benign essential hypertensi on 5687207 Active 2022 MARITA torres [facility] 4 13:05:07 Type 2 diabetes mellitus without complicati on 618805885 Active 2022 MARITA torres [facility] 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 MARITA torres [facility] 4 13:06:39 History of cerebrovas cular accident 542014293 Active 2024June 2020 MARITA torres [facility] 5 16:30:49 Problem Notes None recorded. Procedures Surgical History Date Name Laterality Status Provider Name and Address Organization Details Recorded Time 02/04/20 25 plain X-ray of chest completed MARITA GRIFFIN [facility] 02/06/2025 13:31:00 09/10/19 25 plain X-ray of toe completed [facility] 09/10/2024 17:32:42 09/10/19 25 screening for malignant neoplasm of cervix completed [facility] 09/11/2024 13:32:30 03/26/19 05 Date of Last Pap Smear completed [facility] 12/20/2022 08:09:57 cholecystectomy completed [facility] 12/20/2022 08:04:44 hernia repair completed [facility] 12/20/2022 08:05:12 Knee arthroscopy/surgery completed [facility] 12/20/2022 08:06:11 delivery completed [facility] 12/20/2022 08:08:03 Carpal tunnel surgery completed [facility] 12/20/2022 08:08:17 Imaging Results None recorded. Procedure Notes None recorded. Medical Equipment None Reported. Allergies Allergen ID Allergen Name Allergen Category Reaction Reaction Severity Criticality Documentation Date Start Date Code Code System Note Provider Name and Address Organization Details Recorded Time 3700 Dilaudid medicatio n respirato ry distress Not available Not available 08/22/2022 36370 3 RxNorm [facility] 3 16:26:00 3701 codeine medicatio n vomiting Not available Not available 08/22/2022 2670 RxNorm [facility] 3 16:26:10 44355 hydromorp forrest medicatio n anaphylax is Not available [facility] 02/26/20252015 3423 RxNorm Respi rator y distr ess, recei bryson CPR Not Available laney - External Data Service - prod 07:32:51 Medications Name Sig Start Date Stop [...] Diskus bid 03/05 completed LAZ/LB; Recorded 06/01/19 3:38PM by Francisco Javier Romano, Office Visit; Refill Quantity : 3; Applicat or; Not Available Not Available Not Available One Daily Womens 50 Plus 1 tablet daily 02/03 completed Not Available Not Available Not Available Multi Vitamin 10/22 completed Not Available Not Available Not Available [employer]gardo [employer] e 160 mcg-9mcg- 4.8mcg/ac tuation HFA [...] and Address Organization Details Last Updated DateTime 165.1 cm 40.9 kg/m2 164313. 72 g 85 % 80 /min 20 /min 98.6 [degF] 91 % 75 % 154/90 mm[Hg] MARITA GRIFFIN [facility] 16:27:26 Social History Question Answer Notes LastModified by Haitaobei Details LastModified Time Tobacco Smoking Status Former Smoker quit age 42 MARITA GRIFFIN [facility] 03/05/2024 13:08:10 What Is Your Level Of Caffeine Consumption? Moderate [email or web address] Information not available 02/03/2025 What Was The Date Of Your Most Recent Tobacco Screening? 02/01/2025 [email or web address] Information not available 02/01/2025 Sex: Unknown Functional Status Question Answer Note LastModified by [employer] ion Details LastModified Time Do you use any illicit or recreational drugs? No Information not available 08/22/2022 What is your level of alcohol consumption? Occasional [email or web address] Information not available 08/22/2022 Are you currently employed? Yes [employer] [email or web address] Information not available 03/05/2024 Are you able to walk independently without assistance or assistive devices? YESWOREST [email or web address] Information not available 03/05/2024 Are you able to care for yourself independently? Yes [email or web address] Information not available 03/05/2024 Mental Status None recorded. Family History Relationship Description Onset Age of this Age Resolved Age Notes LastModified by Organization Details LastModified Time Father Hypertensive disorder [email or web address] Not available 03/26 13:59:44 Father Myocardial infarction age 34 [email or web address] Not available 02/23 13:07:45 Mother Hypertensive disorder [email or web address] Not available 03/26 13:59:44 Brother Malignant neoplasm of colon [email or web address] Not available 02/03 14:48:00 Maternal Aunt Malignant neoplasm of colon [email or web address] Not available 02/03 14:48:00 Maternal Aunt Malignant neoplasm of breast [email or web address] Not available 02/03 14:48:34 Paternal Aunt Malignant neoplasm of breast [email or web address] Not available 02/03 14:48:34 Notes:Diabetes on both sides . Medical History Condition Response Coronary Artery Disease N Other N Gout N Kidney Stones N Blood Diseases N Hyperthyroidism N Breast Cancer N Blood Transfusion N Hypothyroidism N Depression Y COPD Y Lung Disease N Defects or Inherited Disease N Developmental or Behavioral Disorders N Breast Problem N Difficulty Swallowing N Anesthesia Complications N Anxiety Disorder Y Meniere's disease N Muscle, Joint, or Bone Problems N Vision [...] N Heart Disease N Pulmonary Embolism N Chronic Ear Infections N Pre-Eclampsia N Hypertension Y Chicken Pox N Autism Spectrum Disorder (ASD) N Osteoporosis N Thrombophilias N Gynecological History Statement/Question Response Abnormal Pap N Date of Last Pap Smear 03/26/2004 Obstetrics History GPAL:G 0 P 0 0 0 0 Immunizations Vaccine Type Date Status Note Provider Nam e and Address Organization Details Recorded Time COVID-19, mRNA, LNP-S, PF, 30 mcg/0.3 mL dose 04/02/2020 completed PEDRITO JACOBSON null, [facility] 04/10/2023 13:57:48 COVID-19, mRNA, LNP-S, PF, 30 mcg/0.3 mL dose 07/24/2020 completed PEDRITO JACOBSON melissa, [facility] 04/10/2023 13:57:48 Hep B, adult 08/11/1996 completed PEDRITO JACOBSON melissa, [facility] 04/10/2023 13:57:48 Hep B, adult 09/15/1996 completed PEDRITO JACOBSON melissa, [facility] 04/10/2023 13:57:48 Hep B, adult 02/16/1997 completed PEDRITO JACOBSON melissa, [facility] 04/10/2023 13:57:48 COVID-19, mRNA, LNP-S, PF, 30 mcg/0.3 mL dose 03/28/2021 completed Luisa Avina MD [address] [place] [address], [phone], [facility] 08/22/2022 16:38:55 Past Encounters Encounter ID Performer Location Encounter Start Date Encounter Closed Date Diagnosis/Indication Diagnosis SNOMED-CT Code Diagnosis ICD10 Code Diagnosis IMO Codes Diagnosis Note [id number] DONNELL MAYER [facility] ([facility]) [address] [place] [address] 02/01/2025 08:01:46 02/01/2025 10:12:23 Acute upper respiratory infection 82402847 J06.9 183728 Increase po fluids. Rest. May use otc meds such as throat lozenges and fluticason e nasal spray as needed for symptoms. Return to clinic with any new or worsening symptoms. [id number] DONNELL THAKKAR [facility] ([facility]) [address] [place] [address] 02/03/2025 14:40:06 02/03/2025 15:33:19 Screening mammography 64771083 Z12.31 8239691 Screening for malignant neoplasm of colon 116250167 Z12.11 218962 brother has stage 4 colon cancer Productive cough 8301781 5 R05.8 041959 Generalize d anxiety disorder 23272570 F41.1 439882 [id number] DONNELL THAKKAR [facility] ([facility]) [address] [place] [address] 03/03/2025 15:08:18 03/03/2025 17:12:25 [facility] [id number] R09.02 39195 Generalize d anxiety disorder 25759208 F41.1 Health Concerns Section Related Observation LastModified by Organization Detai ls LastModified Time None Recorded Concern Status LastModified by Organization Details LastModified Time None Recorded Payers Encounter Date Sequence Insurance Name Policy Number Policy Willett Covered Member ID Willett Member ID Guarantor Name 03/03/2025 1 [facility] [id number] Radha Oneill [id number] Radha Oneill Notes Date Note Type Note Provider Name and Address Organization Details Recorded Time 5 text/htm l DyspneaReported by PatientHPIFor quality, [...] severity, patient reportsmoderate. For context, patient reportsdepression. ANDREAS EUCEDA, [facility] [place], [address], [facility] 03/03/2025 16:57:00 OBGyn Episode No OBEpisode recorded.
--- OUTSIDE RECORDS SUMMARY | 2025-03-03 19:07 | XMS_ITS | Continuity of Care Document ---
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 Plan of Treatment Reminders Order Date Submit Date Provider Last Modified By Organization Details Last Modified Time Details Appointments OFFICE VISIT 15 2024 02:15P AMARI BERNALP Not available Not available Not available [facility] CONS[facility] 2025 11:30A M Chilo Amaya MD Not available Not available Not available Lab pharyngea l pathogens DNA and RNA panel, HOME+non-p robe, throat 2024 025 LANEY [facility] ([facility]), [address] [place], [address], 02/01/2025 08:36:55 Referral None recorded. Procedures None recorded. Surgeries None recorded. Imaging None recorded. Medication Orders None recorded. Patient TargetsNo targets recorded. Patient InstructionsNo instructions recorded. Reason for Referral None Reported. Results Created Date Observation Date Name Description Value Unit Range Abnormal Flag Note LastModifiedBy Organization Detail LastModifiedTime 02/02/2002/01/2025 phary ngeal patho gens DNA and RNA panel , HOME+n on-pr obe, throa t Strep A negati ve Not Available [facility] ([facility]) [address] [place] [address], [address], 02/01/2025 08:14:04 02/02/2002/01/2025 phary ngeal patho gens DNA and RNA panel , HOME+n on-pr obe, throa t Rhinovirus negati ve Not Available [facility] ([facility]) [address] [place] [address], [phone], 02/01/2025 08:14:04 02/02/2002/01/2025 phary ngeal patho gens DNA and RNA panel , HOME+n on-pr obe, throa t RSV negati ve Not Available [facility] ([facility]) [address] [place] [address], [phone], 02/01/2025 08:14:04 02/02/2002/01/2025 phary ngeal patho gens DNA and RNA panel , HOME+n on-pr obe, throa t Influenza A negati ve Not Available [facility] ([facility]) [address] [place] [address], [phone], 02/01/2025 08:14:04 02/02/2002/01/2025 phary ngeal patho gens DNA and RNA panel , HOME+n on-pr obe, throa t Influenza B negati ve Not Available [facility] ([facility]) [address] [place] [address], [address], 02/01/2025 08:14:04 02/04/20 XR, chest , 2 view No observ ation record ed. [facility] ([facility]) [address] [place] [address], [phone], 02/04/2025 13:46:06 02/06/2002/03/2025 XR, chest , 2 view No observ ation record ed. [facility]ANEY [facility] ([facility]) [address] [place] [address], [phone], 02/06/2025 13:31:23 Result Notes None recorded. Problems Name Problem SNOMED Code Status Onset Date Resolution Date Notes Provider Name and Address Organization Details Recorded Time Chronic obstructiv e pulmonary disease 91015942 Active 2022 MARITA torres [facility] 4 13:05:17 Asthma 661167756 Active 2022 MARITACHER torres [facility] 4 13:04:58 Benign essential hypertensi on 3720994 Active 2022 MARITA GABY torres [facility] 4 13:05:07 Type 2 diabetes mellitus without complicati on 563653914 Active 2022 MARITA torres [facility] 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 MARITA torres [facility] 4 13:06:39 History of cerebrovas cular accident 433351037 Active 2024June 2020 MARITA torres [facility] 5 16:30:49 Problem Notes None recorded. Procedures Surgical History Date Name Laterality Status Provider Name and Address Organization Details Recorded Time 02/04/20 25 plain X-ray of chest completed MARITA GABY [facility] 02/06/2025 13:31:00 09/10/19 25 plain X-ray of toe completed MARITA GABY [facility] 09/10/2024 17:32:42 09/10/19 25 screening for malignant neoplasm of cervix completed MARITA GABY [facility] 09/11/2024 13:32:30 03/26/19 05 Date of Last Pap Smear completed PEDRITO JACOBSON [facility] 12/20/2022 08:09:57 cholecystectomy completed [facility] 12/20/2022 08:04:44 hernia repair completed [facility] 12/20/2022 08:05:12 Knee arthroscopy/surgery completed [facility], MarilinLAmanda 12/20/2022 08:06:11 delivery completed [facility] 12/20/2022 08:08:03 Carpal tunnel surgery completed [facility] 12/20/2022 08:08:17 Imaging Results None recorded. Procedure Notes None recorded. Medical Equipment None Reported. Allergies Allergen ID Allergen Name Allergen Category Reaction Reaction Severity Criticality Documentation Date Start Date Code Code System Note Provider Name and Address Organization Details Recorded Time 3700 Dilaudid medicatio n respirato ry distress Not available Not available 08/22/2022 93022 3 RxNorm [facility] 3 16:26:00 3701 codeine medicatio n vomiting Not available Not available 08/22/2022 2670 RxNorm [facility] 3 16:26:10 62352 hydromorp forrest medicatio n anaphylax is Not available [facility] 02/26/20252015 3423 RxNorm Respi rator y [...] Organization Details Last Updated DateTime 165.1 cm 40 kg/m2 528102. 27 g 98 [degF] 77 /min 96 % 158/86 mm[Hg] Tashia Francois [facility] 5 08:16:14 Social History Question Answer Notes LastModified by [place] Details LastModified Time Tobacco Smoking Status Former Smoker quit age 42 MARITA GABY torres [facility] 03/05/2024 13:08:10 What Is Your Level Of Caffeine Consumption? Moderate [email or web address] Information not available 02/03/2025 What Was The Date Of Your Most Recent Tobacco Screening? 02/01/2025 [email or web address] Information not available 02/01/2025 Sex: Unknown Functional Status Question Answer Note LastModified by [place] Details LastModified Time Do you use any illicit or recreational drugs? No [email or web address] Information not available 08/22/2022 What is your level of alcohol consumption? Occasional [email or web address] Information not available 08/22/2022 Are you currently employed? Yes [employer] [email or web address] Information not available 03/05/2024 Are you able to walk independently without assistance or assistive devices? YESWOREST [email or web address] Information not available 03/05/2024 Are you able to care for yourself independently? Yes [email or web address] Information not available 03/05/2024 Mental Status None recorded. Family History Relationship Description Onset Age of this Age Resolved Age Notes LastModified by Organization Details LastModified Time Father Hypertensive disorder [email or web address] Not available 03/26 13:59:44 Father Myocardial infarction age 34 [email or web address] Not available 02/23 13:07:45 Mother Hypertensive disorder [email or web address] Not available 03/26 13:59:44 Brother Malignant neoplasm of colon [email or web address] Not available 02/03 14:48:00 Maternal Aunt Malignant neoplasm of colon [email or web address] Not available 02/03 14:48:00 Maternal Aunt Malignant neoplasm of breast [email or web address] Not available 02/03 14:48:34 Paternal Aunt Malignant neoplasm of breast Not available 02/03 14:48:34 Notes:Diabetes on both sides . Medical History Condition Response Coronary Artery Disease N Other N Gout N Kidney Stones N Blood Diseases N Hyperthyroidism N Breast Cancer N Blood Transfusion N Depression Y Hypothyroidism N Lung Disease N COPD Y Developmental or Behavioral Disorders N Defects or Inherited Disease N Breast Problem N Difficulty Swallowing N Anesthesia Complications N Anxiety Disorder Y Meniere's disease N Muscle, Joint, or Bone Problems N Vision or Eye Problems N Arthritis N Infertility N Polyps N Cancer N Stroke N Varicosities N Endometriosis N Bladder or Kidney Problems [...] mcg/0.3 mL dose 04/02/2020 completed PEDRITO torres [facility] 04/10/2023 13:57:48 COVID-19, mRNA, LNP-S, PF, 30 mcg/0.3 mL dose 07/24/2020 completed PEDRITO torres [facility] 04/10/2023 13:57:48 Hep B, adult 08/11/1996 completed PEDRITO torres [facility] 04/10/2023 13:57:48 Hep B, adult 09/15/1996 completed PEDRITO torres [facility] 04/10/2023 13:57:48 Hep B, adult 02/16/1997 completed PEDRITO torres, [facility] 04/10/2023 13:57:48 COVID-19, mRNA, LNP-S, PF, 30 mcg/0.3 mL dose 03/28/2021 completed Luisa Avina MD [address] [place], [address], [facility] 08/22/2022 16:38:55 Past Encounters Encounter ID Performer Location Encounter Start Date Encounter Closed Date Diagnosis/Indication Diagnosis SNOMED-CT Code Diagnosis ICD10 Code Diagnosis IMO Codes Diagnosis Note [id number] DONNELL MAYER [facility] ([facility]) [address] [place] [address] 02/01/2025 08:01:46 02/01/2025 10:12:23 Acute upper respiratory infection 89751984 J06.9 581238 Increase po fluids. Rest. May use otc meds such as throat lozenges and fluticason e nasal spray as needed for symptoms. Return to clinic with any new or worsening symptoms. Health Concerns Section Related Observation LastModified by Organization Detai ls LastModified Time None Recorded Concern Status LastModified by Organization Details LastModified Time None Recorded Payers Encounter Date Sequence Insurance Name Policy Number Policy Willett Covered Member ID Willett Member ID Guarantor Name 02/01/2025 1 [facility] [id number] Radha Oneill [id number] Radha Oneill Notes Date Note Type Note Provider Name and Address Organization Details Recorded Time 02/01/2025 text/html ROS as noted in the HPI walk in ptPt has a productive cough and sinus drainage that started 5 days. Today she woke up with a sore throat. Denies any fever but states that she has been cold at times. DONNELL MAYER [address] [place], [address], [facility], Maged 02/01/2025 08:47:15 OBGyn Episode No OBEpisode recorded.
[2025-03-03 19:12] VITALS: BP 145/80; O2SAT 93
[2025-03-03 19:59] VITALS: BP 133/63; PULSE 72; RESP 16; O2SAT 90
== END 2025-03-03 20:00 | disposition home or self-care (01) ==
PROVIDERS: Emergency Provider Physician Assistant; PCP Nurse Practitioner Family
DX: J44.1 Chronic obstructive pulmonary disease with (acute) exacerbation (principal); R91.1 Solitary pulmonary nodule; I25.10 Atherosclerotic heart disease of native coronary artery without angina pectoris; Z87.891 Personal history of nicotine dependence
CPT/HCPCS: 36415; 71045; 71260; 80053; 81001; 83880; 84484; 85025; 85378; 87637; 93005; 94640; 96374; 96375; 99285; J0456; J2919; J7050; J9999